=== PATIENT | female | born 1955 | race American Indian/Alaskan Native ===

== ENCOUNTER 2017-09-16 14:30 | Inpatient (IN) | payer SELFPAY ==
--- NOTE | 2017-09-16 14:47 | Emergency Department Report ---
HPI - General Time Seen by Provider: 09/16/17 14:34 - HPI HPI: 62-year-old female presents to the emergency department via EMS from home as a code stroke. Patient's granddaughters are here and state that the last time she was at her normal baseline mental status was sometime yesterday. This morning she was able to get out one or 2 word sentences and worsened from there. She has a past medical history of some type of adrenal gland removal. The family is unaware of any history of diabetes but the patient was found to have a critical high blood sugar and apparently told EMS that she used to have diabetes but took herself off the medications. The patient herself is currently a poor story and as she is altered. ED Past Medical Hx - Medications Home Medications: Home Medications Medication Instructions Recorded Confirmed Last Taken Type No Known Home Medications [No 09/16/17 09/16/17 Unknown History Reported Home Medications] ED Review of Systems ROS: Stated complaint: POSS STROKE Other details as noted in HPI Comment: Unobtainable due to pts medical conditions Physical Exam - Physical Exam Physical Exam: GENERAL: Patient is well-appearing. HENT: Normocephalic. Atraumatic. Patient has moist mucous membranes. EYES: Extraocular motions are intact. Pupils equal reactive to light bilaterally. NECK: Supple. Trachea is midline. CHEST/LUNGS: Clear to auscultation. Mild tachypnea but no excessive muscle use. There is no respiratory distress noted. HEART/CARDIOVASCULAR: Regular. There is no tachycardia. There is no murmur. ABDOMEN: Abdomen is soft, nontender. Patient has normal bowel sounds. There is no abdominal distention. SKIN: Skin is warm and dry. NEURO: The patient is awake and cooperative but confused. No obvious motor or sensory deficits. Patient has some dysarthria and mild aphasia. MUSCULOSKELETAL: There is no tenderness or deformity. There is no evidence of acute injury. ED Course - Reevaluation(s) Reevaluation #1: 09/16/17 15:06 NIH Stroke Scale/Score (NIHSS) RESULT SUMMARY: 2 points NIH Stroke Scale INPUTS: 1A: Level of consciousness > 0 = Alert; keenly responsive 1B: Ask month and age > 0 = Both questions right 1C: 'Blink eyes' & 'squeeze hands' > 0 = Performs both tasks 2: Horizontal extraocular movements > 0 = Normal 3: Visual smith > 0 = No visual loss 4: Facial palsy > 0 = Normal symmetry 5A: Left arm motor drift > 0 = No drift for 10 seconds 5B: Right arm motor drift > 0 = No drift for 10 seconds 6A: Left leg motor drift > 0 = No drift for 5 seconds 6B: Right leg motor drift > 0 = No drift for 5 seconds 7: Limb Ataxia > 0 = No ataxia 8: Sensation > 0 = Normal; no sensory loss 9: Language/aphasia > 1 = Mild-moderate aphasia: some obvious changes, without significant limitation 10: Dysarthria > 1 = Mild-moderate dysarthria: slurring but can be understood 11: Extinction/inattention > 0 = No abnormality - Consultations Consultation #1: 09/16/17 18:10 I spoke with the telemedicine neurologist, Dr Vallejo, regarding the patient's presentation with altered mental status and CT head evidence of recent left frontal ischemic infarct. She agrees that the patient does not appear to be a TPA candidate as the patient's last known well time was yesterday and the CT Zeferino shows evidence of the infarct. She also feels that there is not a necessity for CT angiography of the head and neck since the stroke has already presented and his advanced. ED Medical Decision Making - Lab Data Result diagrams: 09/16/17 14:44 09/16/17 17:14 - Radiology Data Radiology results: report reviewed EXAM: CT HEAD/BRAIN WO CON HISTORY: neuro deficits lt; 6hrs or sx present upon awakening altered mental status. TECHNIQUE: CT of the head was performed without intravenous contrast. PRIORS: None. FINDINGS: The ventricles are normal in shape and position. The ventricles are nondilated. There is an area of focal edema within the left lateral frontal lobe with loss of the corticomedullary differentiation. No intracranial hemorrhage, mass, mass effect, or midline shift. The basilar cisterns are patent. The paranasal sinuses are clear. The extracranial soft tissues demonstrate no abnormality. The calvarium is intact. The orbits are intact. The mastoid air cells are clear. IMPRESSION: Findings concerning for recent left frontal lobe ischemic infarct. - Medical Decision Making Patient presented as a code stroke with concern for altered mental status and some dysarthria and aphasia. The patient's granddaughters are here and state that the symptoms first started yesterday but worsened today and yesterday was last known well time. This takes the patient out of the TPA window. CT of the head without contrast was done stat that came back resulting as a recent left frontal ischemic infarct. The Accu-Chek done on EMS was correct and the patient does have severe hyperglycemia. Her blood sugar from the serum came back greater than 1000 with some venous acidosis and elevated anion gap showing concern for DKA. This also could be a source of the patient's symptoms. She was given IV fluid resuscitation and started on an insulin drip. The patient was also found to have a lactic acidosis, pseudohyponatremia. All the labs and imaging results were discussed with the patient and her family and they understand the plan regarding ICU admission for further evaluation and treatment. They understand and agreed to the plan. - Differential Diagnosis DKA, HHNK, TIA, CVA, Dysrythmia Critical Care Time: Yes Critical care time in (mins) excluding proc time.: 35 Critical care attestation.: If time is entered above; I have spent that time in minutes in the direct care of this critically ill patient, excluding procedure time.critical care time was spent on this patient and doing her initial evaluation, multiple re-evaluations , discussion with the radiologist and telemedicine neurologist and family, ordering interpretation of labs and imaging, ordering and administration of medications including insulin drip, and disposition planning. Critical Care Time: 35 minutes ED Disposition Clinical Impression: Hypertensive urgency, Lactic acidosis CVA (cerebral vascular accident) Qualifiers: CVA mechanism: unspecified Qualified Code(s): I63.9 - Cerebral infarction, unspecified DKA (diabetic ketoacidoses) Qualifiers: Diabetes mellitus type: other specified (including HUMBERTO) Diabetes mellitus complication detail: without coma Qualified Code(s): E13.10 - Other specified diabetes mellitus with ketoacidosis without coma Disposition: DC-09 OP ADMIT IP TO THIS HOSP Is pt being admited?: Yes Condition: Serious Time of Disposition: 18:16
--- NOTE | 2017-09-16 14:53 | Cat Scan Report ---
FINAL REPORT EXAM: CT HEAD/BRAIN WO CON HISTORY: neuro deficits < 6hrs or sx present upon awakening altered mental status. TECHNIQUE: CT of the head was performed without intravenous contrast. PRIORS: None. FINDINGS: The ventricles are normal in shape and position. The ventricles are nondilated. There is an area of focal edema within the left lateral frontal lobe with loss of the corticomedullary differentiation. No intracranial hemorrhage, mass, mass effect, or midline shift. The basilar cisterns are patent. The paranasal sinuses are clear. The extracranial soft tissues demonstrate no abnormality. The calvarium is intact. The orbits are intact. The mastoid air cells are clear. IMPRESSION: Findings concerning for recent left frontal lobe ischemic infarct. Findings were discussed with Dr. Jaskaran Smith at 11:45 a.m. [facility] [place] on 09/16/2017.
[2017-09-16 15:00] LABS: Basophils % (Auto) 0.6 % (0.0-1.8); Eosinophils % (Auto) 0.2 % (0.0-4.3); Lymphocytes % (Auto) 11.7 % (13.4-35.0); Mean Corpuscular HGB Conc 31 % (30-34); Mean Corpuscular Hemoglobin 27 pg (28-32); Mean Corpuscular Volume 86 fl (79-97); Monocytes # (Auto) 0.3 K/mm3 (0.0-0.8); Monocytes % (Auto) 3.4 % (0.0-7.3); Platelet Count 236 K/mm3 (140-440); Red Blood Count 5.46 M/mm3 (3.65-5.03); Red Cell Distribution Width 15.8 % (13.2-15.2)
[2017-09-16 15:01] LABS: Hematocrit 47.1 % (30.3-42.9); Hemoglobin 14.5 gm/dl (10.1-14.3)
[2017-09-16 15:08] LABS: INR 0.97 (0.87-1.13); Partial Thromboplastin Time 24.9 Sec. (24.2-36.6); Thrombin Time 18.4 Sec. (15.1-19.6)
[2017-09-16 15:15] LABS: BUN/Creatinine Ratio 19; Blood Urea Nitrogen 33 mg/dL (7-17); Calcium 9.2 mg/dL (8.4-10.2); Hemolysis Index 3
[2017-09-16 15:20] LABS: Alanine Aminotransferase 21 units/L (7-56); Albumin 4.4 g/dL (3.9-5)
[2017-09-16 15:22] LABS: Bilirubin,Direct < 0.2 mg/dL (0-0.2)
[2017-09-16] MEDS ORDERED: NACL 0.9% 1000 ML 1,000 ML IV ONE ×2 (15:37→16:22)
[2017-09-16] MEDS ORDERED: APRESOLINE IV ONE (15:38)
[2017-09-16] MEDS ORDERED: D50W (25GM) Syringe IV PRN ×2 (15:38→17:39)
[2017-09-16] MEDS ORDERED: HumuLIN R 100 UNITS in NACL 0.9% 99 ML IV SCH ×2 (16:00→18:00)
[2017-09-16 16:20] LABS: Calcium 9.1 mg/dL (8.4-10.2)
[2017-09-16] MEDS ORDERED: REGLAN IV PRN (17:39)
[2017-09-16] MEDS ORDERED: PERCOCET 5/325 PO PRN (17:39)
[2017-09-16] MEDS ORDERED: SODIUM CHLORIDE FLUSH SYRINGE 10 ML IV PRN ×2 (17:39→23:30)
[2017-09-16] MEDS ORDERED: ZOFRAN IV PRN ×2 (17:39→23:30)
[2017-09-16] MEDS ORDERED: MORPHINE IV PRN (17:39)
--- NOTE | 2017-09-16 17:39 | History and Physical Report ---
History of Present Illness Date of examination: 09/16/17 Date of admission: 09/16/17 Chief complaint: Cc Altered Sensorium since AM History of present illness: [place] 62 yo Black female with doubtful history of Diabetes not on any medicines comes in for altered sensorium.Patient was doing well till yesterday.Patient had a reaction to Crab 4 days ago which resolved spontaneously.Patient had Partial Nephrectomy and Adrenalectomy couple of years ago.Was told that she had Diabetes but there was no follow up and she is not on any meds.Patient is confused and Altered.No Seizures.No fever or chills.Code stroke was called.Patient moving all 4 extremities. Past History Past Medical History: diabetes Past Surgical History: Other (Partial Nephrectomy and Adrenalectomy) Social history: lives with family, full code Family history: hypertension Medications and Allergies Allergies Allergy/AdvReac Type Severity Reaction Status Date / Time No Known Allergies Allergy Unverified 09/16/17 14:32 Home Medications Medication Instructions Recorded Confirmed Last Taken Type No Known Home Medications [No 09/16/17 09/16/17 Unknown History Reported Home Medications] Active Meds: Active Medications Dextrose (D50w (25gm) Syringe) 0 ml IV PRN PRN PRN Reason: Hypoglycemia Insulin Human Regular 100 (units/ Sodium Chloride) 100 mls @ 6 mls/hr IV TITR ALEXANDER; Protocol Last Admin: 09/16/17 16:24 Dose: 8 units/hr, 8 mls/hr Review of Systems All systems: negative Constitutional: lethargy, no weight loss, no weight gain, no fever, no chills, no sweats, no night sweats, no anorexia, no fatigue, no weakness, no malaise Ears, nose, mouth and throat: no mouth pain, no dysphagia, no hoarseness, no sore throat, no swelling in mouth, no swelling in throat Breasts: deferred Cardiovascular: no chest pain, no orthopnea, no palpitations, no rapid/ irregular heart beat, no edema, no syncope, no lightheadedness, no shortness of breath, no dyspnea on exertion, no paroxysmal nocturnal dyspnea Respiratory: no cough, no cough with sputum, no excessive sputum, no hemoptysis , no shortness of breath, no dyspnea on exertion, no congestion, no wheezing Gastrointestinal: no nausea, no vomiting, no diarrhea, no constipation, no change in bowel habits, no hematemesis, no coffee ground emesis Genitourinary Female: dysuria, urinary frequency, urgency Menstruation: ammenorrhea Rectal: no pain Musculoskeletal: no neck stiffness, no neck pain, no shooting arm pain, no arm numbness/tingling, no low back pain, no shooting leg pain, no leg numbness/ tingling, no redness of joints Integumentary: no rash, no pruritis, no redness, no sores, no wounds, no jaundice, no boils, no blisters Neurological: no head injury, no transient paralysis, no paralysis, no weakness , no parathesias, no numbness, no tingling, no seizures, no syncope, no tremors , no ataxia, no lack of coordination Psychiatric: no insomnia, no hypersomnia Endocrine: polyphagia, excessive thirst, polydipsia, polyuria, nocturia Hematologic/Lymphatic: no easy bruising, no easy bleeding Allergic/Immunologic: no urticaria, no allergic rhinitis, no wheezing Exam - Physical Exam Narrative exam: Lying in bed uncomfortably - Constitutional Vitals: Temp Pulse Resp BP Pulse Ox 97.3 F L 86 24 171/86 98 09/16/17 16:20 09/16/17 16:20 09/16/17 16:20 09/16/17 16:20 09/16/17 16:20 General appearance: Present: mild distress, well-nourished - EENT Eyes: Present: PERRL ENT: hearing intact, clear oral mucosa - Neck Neck: Present: supple, normal ROM - Respiratory Respiratory effort: normal Respiratory: bilateral: CTA - Cardiovascular Heart rate: 78 Rhythm: regular Heart Sounds: Present: S1 & S2. Absent: rub, click - Extremities Extremities: no ischemia, pulses intact, pulses symmetrical, No edema Peripheral Pulses: within normal limits - Abdominal General gastrointestinal: Present: soft, non-tender, non-distended, normal bowel sounds Female genitourinary: Present: normal - Rectal Rectal Exam: deferred - Integumentary Integumentary: Present: clear, warm, dry - Musculoskeletal Musculoskeletal: gait normal, strength equal bilaterally - Psychiatric Psychiatric: appropriate mood/affect, intact judgment & insight - Neurologic Neurologic: CNII-XII intact, moves all extremities - Allied Health Allied health notes reviewed: nursing, case management Results - Labs CBC & Chem 7: 09/16/17 14:44 09/16/17 17:14 Labs: Laboratory Last Values WBC 8.7 K/mm3 (4.5-11.0) 09/16/17 14:44 RBC 5.46 M/mm3 (3.65-5.03) H 09/16/17 14:44 Hgb 14.5 gm/dl (10.1-14.3) H 09/16/17 14:44 Hct 47.1 % (30.3-42.9) H 09/16/17 14:44 MCV 86 fl (79-97) 09/16/17 14:44 MCH 27 pg (28-32) L 09/16/17 14:44 MCHC 31 % (30-34) 09/16/17 14:44 RDW 15.8 % (13.2-15.2) H 09/16/17 14:44 Plt Count 236 K/mm3 (140-440) 09/16/17 14:44 Lymph % (Auto) 11.7 % (13.4-35.0) L 09/16/17 14:44 [place] % (Auto) 3.4 % (0.0-7.3) 09/16/17 14:44 Eos % (Auto) 0.2 % (0.0-4.3) 09/16/17 14:44 Baso % (Auto) 0.6 % (0.0-1.8) 09/16/17 14:44 Lymph # 1.0 K/mm3 (1.2-5.4) L 09/16/17 14:44 [place] # 0.3 K/mm3 (0.0-0.8) 09/16/17 14:44 Eos # 0.0 K/mm3 (0.0-0.4) 09/16/17 14:44 Baso # 0.0 K/mm3 (0.0-0.1) 09/16/17 14:44 Seg Neutrophils % 84.1 % (40.0-70.0) H 09/16/17 14:44 Seg Neutrophils # 7.3 K/mm3 (1.8-7.7) 09/16/17 14:44 PT 13.4 Sec. (12.2-14.9) 09/16/17 14:44 INR 0.97 (0.87-1.13) 09/16/17 14:44 APTT 24.9 Sec. (24.2-36.6) 09/16/17 14:44 Thrombin Time 18.4 Sec. (15.1-19.6) 09/16/17 14:44 VBG pH 7.308 (7.320-7.420) L 09/16/17 14:44 Sodium 120 mmol/L (137-145) L 09/16/17 15:46 Potassium 5.5 mmol/L (3.6-5.0) H 09/16/17 15:46 Chloride 82.4 mmol/L (98-107) L 09/16/17 15:46 Carbon Dioxide 19 mmol/L (22-30) L 09/16/17 15:46 Anion Gap 24 mmol/L 09/16/17 15:46 BUN 33 mg/dL (7-17) H 09/16/17 15:46 Creatinine 1.6 mg/dL (0.7-1.2) H 09/16/17 15:46 Estimated GFR 39 ml/min 09/16/17 15:46 BUN/Creatinine Ratio 21 % 09/16/17 15:46 Glucose 1097 mg/dL (65-100) H* 09/16/17 15:46 POC Glucose > 500 (70-105) H 09/16/17 17:32 Lactic Acid 2.10 mmol/L (0.7-2.0) H* 09/16/17 16:16 Calcium 9.1 mg/dL (8.4-10.2) 09/16/17 15:46 Phosphorus 4.10 mg/dL (2.5-4.5) 09/16/17 15:46 Magnesium 2.20 mg/dL (1.7-2.3) 09/16/17 15:46 Total Bilirubin 0.40 mg/dL (0.1-1.2) 09/16/17 14:44 Direct Bilirubin < 0.2 mg/dL (0-0.2) 09/16/17 14:44 Indirect Bilirubin 0.2 mg/dL 09/16/17 14:44 AST 20 units/L (5-40) 09/16/17 14:44 ALT 21 units/L (7-56) 09/16/17 14:44 Alkaline Phosphatase 139 units/L (35-129) H 09/16/17 14:44 Ammonia 25.0 umol/L (25-60) 09/16/17 14:44 Troponin T < 0.010 ng/mL (0.00-0.029) 09/16/17 14:44 Total Protein 7.6 g/dL (6.3-8.2) 09/16/17 14:44 Albumin 4.4 g/dL (3.9-5) 09/16/17 14:44 Albumin/Globulin Ratio 1.4 % 09/16/17 14:44 Short CBC 09/16/17 Range/Units 14:44 WBC 8.7 (4.5-11.0) K/mm3 Hgb 14.5 H (10.1-14.3) gm/dl Hct 47.1 H (30.3-42.9) % Plt Count 236 (140-440) K/mm3 BMP 09/16/17 09/16/17 09/16/17 14:44 15:46 17:14 Sodium 122 L 120 L 129 L D Potassium 5.2 H 5.5 H 4.7 Chloride 83.0 L 82.4 L 88.4 L Carbon Dioxide 22 19 L 21 L BUN 33 H 33 H 31 H Creatinine 1.7 H 1.6 H 1.6 H Glucose 1113 H* 1097 H* 722 H* Calcium 9.2 9.1 9.3 Cardiac Enzymes 09/16/17 Range/Units 14:44 Troponin T < 0.010 (0.00-0.029) ng/mL Liver Function 09/16/17 Range/Units 14:44 Total Bilirubin 0.40 (0.1-1.2) mg/dL Direct Bilirubin < 0.2 (0-0.2) mg/dL AST 20 (5-40) units/L ALT 21 (7-56) units/L Alkaline Phosphatase 139 H (35-129) units/L Albumin 4.4 (3.9-5) g/dL Urine 09/16/17 Range/Units Unknown Urine Color Straw (Yellow) Urine pH 6.0 (5.0-7.0) Ur Specific [place] 1.024 (1.003-1.030) Urine Protein <15 mg/dl (Negative) mg/dL Urine Glucose (UA) >=500 (Negative) mg/dL - Imaging and Cardiology EKG: report reviewed Imaging and Cardiology: Head CT IMPRESSION: Findings concerning for recent left frontal lobe ischemic infarct. Assessment and Plan Assessment and plan: Critical care statement: The high probability of a clinically significant, sudden or life threatening deterioration of the [Pulmonary, cadiac, renal] system(s) required my full and direct attention, intervention and personal management. The aggregate critical care time was [45] minutes. This time is in addition to time spent performing reported procedures but includes the following: [x] Data Review and interpretation [x] Patient assessment and monitoring of vital signs [x] Documentation [x] Medication orders and management Advance Directives: Yes (Full code) VTE prophylaxis?: Chemical Plan of care discussed with patient/family: Yes - Patient Problems (1) Hyperosmolar non-ketotic state in patient with type 2 diabetes mellitus Current Visit: Yes Status: Acute Plan to address problem: DKA protocol with Insulin drip and IV fluids and KCL as necessary ICU Admission Critical care consult Initiate Lantus 30 units SQ hs (2) CVA (cerebral vascular accident) Current Visit: Yes Status: Acute Qualifiers: CVA mechanism: unspecified Qualified Code(s): I63.9 - Cerebral infarction, unspecified Plan to address problem: Unlikely Will get MRI/MRA (3) GUSTAVO (acute kidney injury) Current Visit: Yes Status: Acute Plan to address problem: IV Fluids for now (4) Hyponatremia Current Visit: Yes Status: Acute Plan to address problem: Correction of BG should correct the sodium levels (5) Hyperkalemia Current Visit: Yes Status: Acute Plan to address problem: Also should correct because of cellular shifts with IV IV insulin (6) DVT prophylaxis Current Visit: Yes Status: Acute Plan to address problem: Lovenox SQ and GI prophylaxis with Famotidine
[2017-09-16 17:48] LABS: Calcium 9.3 mg/dL (8.4-10.2)
[2017-09-16] MEDS ORDERED: KCL 10MEQ/100ML 10 MEQ/100 ML BAG IV SCH ×2 (18:00)
[2017-09-16 18:16] LABS: Bilirubin,Urine NEG (Negative); Blood,Urine NEG (Negative); Color,Urine Straw (Yellow); Mucus,Urine FEW /HPF; Protein,Urine <15 mg/dL mg/dL (Negative); Urobilinogen,Urine < 2.0 mg/dL (<2.0)
[2017-09-16 19:34] LABS: Calcium 9.4 mg/dL (8.4-10.2)
[2017-09-16] MEDS: D5W/0.45% NACL/KCL 20 MEQ 20 MEQ/1,000 ML BAG IV SCH (20:40)
[2017-09-16] MEDS ORDERED: SODIUM CHLORIDE FLUSH SYRINGE 10 ML IV SCH (22:00)
[2017-09-16] MEDS ORDERED: LANTUS SUB-Q SCH ×2 (22:00)
[2017-09-16] MEDS ORDERED: TYLENOL PO PRN (23:30)
[2017-09-17] MEDS: D5W/0.45% NACL/KCL 20 MEQ 20 MEQ/1,000 ML BAG IV SCH (04:28)
[2017-09-17 07:46] LABS: BUN/Creatinine Ratio 16; Blood Urea Nitrogen 18 mg/dL (7-17); Calcium 8.8 mg/dL (8.4-10.2); Hemolysis Index 8
[2017-09-17] MEDS ORDERED: LOVENOX SUB-Q SCH (10:00)
[2017-09-17 10:12] LABS: BUN/Creatinine Ratio 15; Blood Urea Nitrogen 16 mg/dL (7-17); Calcium 8.7 mg/dL (8.4-10.2); Hemolysis Index 5
[2017-09-17] MEDS: SODIUM CHLORIDE FLUSH SYRINGE 10 ML IV SCH ×2 (10:46→23:14)
[2017-09-17] MEDS: LOVENOX SUB-Q SCH (11:33)
--- NOTE | 2017-09-17 11:38 | Progress Note ---
Assessment and Plan Assessment and plan: LASHAY 62 yo Black female with doubtful history of Diabetes not on any medicines comes in for altered sensorium.Patient was doing well till yesterday.Patient had a reaction to Crab 4 days ago which resolved spontaneously.Patient had Partial Nephrectomy and Adrenalectomy couple of years ago.Was told that she had Diabetes but there was no follow up and she is not on any meds.Patient is confused and Altered.No Seizures.No fever or chills.Code stroke was called.Patient moving all 4 extremities. Past History Past Medical History: diabetes IMPRESSION: Findings concerning for recent left frontal lobe ischemic infarct. Assessment and Plan Assessment and plan: Critical care statement: The high probability of a clinically significant, sudden or life threatening deterioration of the [Pulmonary, cadiac, renal] system(s) required my full and direct attention, intervention and personal management. The aggregate critical care time was [45] minutes. This time is in addition to time spent performing reported procedures but includes the following: [x] Data Review and interpretation [x] Patient assessment and monitoring of vital signs [x] Documentation [x] Medication orders and management Advance Directives: Yes (Full code) VTE prophylaxis?: Chemical Plan of care discussed with patient/family: Yes - Patient Problems (1) Hyperosmolar non-ketotic state in patient with type 2 diabetes mellitus Current Visit: Yes Status: Acute Plan to address problem: DKA protocol with Insulin drip and IV fluids and KCL as necessary ICU Admission Critical care consult Initiate Lantus 30 units SQ hs (2) CVA (cerebral vascular accident) Current Visit: Yes Status: Acute Qualifiers: CVA mechanism: unspecified Qualified Code(s): I63.9 - Cerebral infarction, unspecified Plan to address problem: Unlikely Will get MRI/MRA (3) GUSTAVO (acute kidney injury) Current Visit: Yes Status: Acute Plan to address problem: IV Fluids for now (4) Hyponatremia Current Visit: Yes Status: Acute Plan to address problem: Correction of BG should correct the sodium levels (5) Hyperkalemia Current Visit: Yes Status: Acute Plan to address problem: Also should correct because of cellular shifts with IV IV insulin (6) DVT prophylaxis Current Visit: Yes Status: Acute Plan to address problem: Lovenox SQ and GI prophylaxis with Famotidine Hospitalist Physical - Constitutional Vitals: Temp Pulse Resp BP Pulse Ox 98.3 F 69 21 128/67 93 08/07/18 08:00 09/17/17 08:00 09/17/17 08:00 09/17/17 08:00 09/17/17 10:32 General appearance: Present: mild distress, well-nourished Results - Labs CBC & Chem 7: 09/16/17 14:44 09/17/17 09:28 Labs: Laboratory Last Values WBC 8.7 K/mm3 (4.5-11.0) 09/16/17 14:44 RBC 5.46 M/mm3 (3.65-5.03) H 09/16/17 14:44 Hgb 14.5 gm/dl (10.1-14.3) H 09/16/17 14:44 Hct 47.1 % (30.3-42.9) H 09/16/17 14:44 MCV 86 fl (79-97) 09/16/17 14:44 MCH 27 pg (28-32) L 09/16/17 14:44 MCHC 31 % (30-34) 09/16/17 14:44 RDW 15.8 % (13.2-15.2) H 09/16/17 14:44 Plt Count 236 K/mm3 (140-440) 09/16/17 14:44 Lymph % (Auto) 11.7 % (13.4-35.0) L 09/16/17 14:44 [place] % (Auto) 3.4 % (0.0-7.3) 09/16/17 14:44 Eos % (Auto) 0.2 % (0.0-4.3) 09/16/17 14:44 Baso % (Auto) 0.6 % (0.0-1.8) 09/16/17 14:44 Lymph # 1.0 K/mm3 (1.2-5.4) L 09/16/17 14:44 [place] # 0.3 K/mm3 (0.0-0.8) 09/16/17 14:44 Eos # 0.0 K/mm3 (0.0-0.4) 09/16/17 14:44 Baso # 0.0 K/mm3 (0.0-0.1) 09/16/17 14:44 Seg Neutrophils % 84.1 % (40.0-70.0) H 09/16/17 14:44 Seg Neutrophils # 7.3 K/mm3 (1.8-7.7) 09/16/17 14:44 PT 13.4 Sec. (12.2-14.9) 09/16/17 14:44 INR 0.97 (0.87-1.13) 09/16/17 14:44 APTT 24.9 Sec. (24.2-36.6) 09/16/17 14:44 Thrombin Time 18.4 Sec. (15.1-19.6) 09/16/17 14:44 VBG pH 7.308 (7.320-7.420) L 09/16/17 14:44 Sodium 135 mmol/L (137-145) L 09/17/17 09:28 Potassium 4.1 mmol/L (3.6-5.0) 09/17/17 09:28 Chloride 103.4 mmol/L (98-107) 09/17/17 09:28 Carbon Dioxide 18 mmol/L (22-30) L 09/17/17 09:28 Anion Gap 18 mmol/L 09/17/17 09:28 BUN 16 mg/dL (7-17) 09/17/17 09:28 Creatinine 1.1 mg/dL (0.7-1.2) 09/17/17 09:28 Estimated GFR > 60 ml/min 09/17/17 09:28 BUN/Creatinine Ratio 15 % 09/17/17 09:28 Glucose 176 mg/dL (65-100) H 09/17/17 09:28 POC Glucose 126 (70-105) H 09/17/17 06:31 Hemoglobin A1c 12.7 % (4-6) H 09/16/17 17:48 Ketones Quantitative Negative (Negative) 09/16/17 19:10 Osmolality 318 Mosm/kg 09/16/17 17:48 Lactic Acid 4.90 mmol/L (0.7-2.0) H* 09/16/17 19:10 Calcium 8.7 mg/dL (8.4-10.2) 09/17/17 09:28 Phosphorus 4.00 mg/dL (2.5-4.5) 09/16/17 17:48 Magnesium 2.30 mg/dL (1.7-2.3) 09/16/17 17:48 Total Bilirubin 0.40 mg/dL (0.1-1.2) 09/16/17 14:44 Direct Bilirubin < 0.2 mg/dL (0-0.2) 09/16/17 14:44 Indirect Bilirubin 0.2 mg/dL 09/16/17 14:44 AST 20 units/L (5-40) 09/16/17 14:44 ALT 21 units/L (7-56) 09/16/17 14:44 Alkaline Phosphatase 139 units/L (35-129) H 09/16/17 14:44 Ammonia 25.0 umol/L (25-60) 09/16/17 14:44 Troponin T < 0.010 ng/mL (0.00-0.029) 09/16/17 14:44 Total Protein 7.6 g/dL (6.3-8.2) 09/16/17 14:44 Albumin 4.4 g/dL (3.9-5) 09/16/17 14:44 Albumin/Globulin Ratio 1.4 % 09/16/17 14:44 Urine Color Straw (Yellow) 09/16/17 Unknown Urine Turbidity Clear (Clear) 09/16/17 Unknown Urine pH 6.0 (5.0-7.0) 09/16/17 Unknown Ur Specific [place] 1.024 (1.003-1.030) 09/16/17 Unknown Urine Protein <15 mg/dl mg/dL (Negative) 09/16/17 Unknown Urine Glucose (UA) >=500 mg/dL (Negative) 09/16/17 Unknown Urine Ketones Neg mg/dL (Negative) 09/16/17 Unknown Urine Blood Neg (Negative) 09/16/17 Unknown Urine Nitrite Neg (Negative) 09/16/17 Unknown Urine Bilirubin Neg (Negative) 09/16/17 Unknown Urine Urobilinogen < 2.0 mg/dL (<2.0) 09/16/17 Unknown Ur Leukocyte Esterase Neg (Negative) 09/16/17 Unknown Urine WBC (Auto) 3.0 /HPF (0.0-6.0) 09/16/17 Unknown Urine RBC (Auto) 1.0 /HPF (0.0-6.0) 09/16/17 Unknown U Epithel Cells (Auto) 3.0 /HPF (0-13.0) 09/16/17 Unknown Urine Mucus Few /HPF 09/16/17 Unknown
--- NOTE | 2017-09-17 11:54 | Consultation ---
History of Present Illness Consult date: 09/17/17 Requesting physician: MARLY JOY Reason for consult: other (DKA) History of present illness: ASKED to see for ICU admission for DKA, Transitioned and off IV insulin before my evaluation please reconsult as needed Past History Past Medical History: diabetes Past Surgical History: Other (Partial Nephrectomy and Adrenalectomy) Social history: lives with family, full code Family history: hypertension Medications and Allergies Allergies Allergy/AdvReac Type Severity Reaction Status Date / Time No Known Allergies Allergy Unverified 09/16/17 14:32 Home Medications Medication Instructions Recorded Confirmed Last Taken Type Gabapentin [Neurontin] 100 mg PO Q8HR #90 capsule 09/18/17 Unknown Rx Insulin NPH/Regular [NovoLIN 70/30] 15 unit SQ BIDDIAB #1 vial 09/18/17 Unknown Rx Active Meds: Active Medications Acetaminophen (Tylenol) 650 mg PO Q4H PRN PRN Reason: Pain MILD(1-3)/Fever >100.5/HOLDER Dextrose (D50w (25gm) Syringe) 0 ml IV ONCE PRN PRN Reason: Hypoglycemia Enoxaparin Sodium (Lovenox) 40 mg SUB-Q QDAY@1000 ALEXANDER Last Admin: 09/17/17 11:33 Dose: 40 mg Insulin Human Regular 100 (units/ Sodium Chloride) 100 mls @ 6 mls/hr IV TITR ALEXANDER; Protocol Last Titration: 09/17/17 08:10 Dose: 2 units/hr, 2 mls/hr Potassium Chloride/Dextrose/Sod Cl (D5w/0.45% Nacl/Kcl 20 Meq) 20 meq in 1,000 mls @ 125 mls/hr IV DIRECT ALEXANDER Last Admin: 09/17/17 04:28 Dose: 125 mls/hr Insulin Glargine (Lantus) 30 units SUB-Q QHS ALEXANDER Last Admin: 09/16/17 23:52 Dose: Not Given Metoclopramide HCl (Reglan) 10 mg IV Q6H PRN PRN Reason: Nausea And Vomiting Morphine Sulfate (Morphine) 2 mg IV Q4H PRN PRN Reason: Pain, Moderate (4-6) Ondansetron HCl (Zofran) 4 mg IV Q8H PRN PRN Reason: Nausea And Vomiting Oxycodone/Acetaminophen (Percocet 5/325) 1 tab PO Q6H PRN PRN Reason: Pain, Moderate (4-6) Sodium Chloride (Sodium Chloride Flush Syringe 10 Ml) 10 ml IV BID ALEXANDER Last Admin: 09/17/17 10:46 Dose: 10 ml Sodium Chloride (Sodium Chloride Flush Syringe 10 Ml) 10 ml IV PRN PRN PRN Reason: LINE FLUSH Physical Examination Vital signs: Vital Signs BP 171/73 09/16/17 14:41 Results - Laboratory Findings CBC and BMP: 09/16/17 14:44 09/17/17 09:28 PT/INR, D-dimer PT 13.4 Sec. (12.2-14.9) 09/16/17 14:44 INR 0.97 (0.87-1.13) 09/16/17 14:44 Abnormal lab findings: Abnormal Labs 09/16/17 09/16/17 09/16/17 14:44 14:44 14:44 RBC 5.46 H Hgb 14.5 H Hct 47.1 H MCH 27 L RDW 15.8 H Lymph % (Auto) 11.7 L Lymph # 1.0 L Seg Neutrophils % 84.1 H VBG pH Sodium 122 L Potassium 5.2 H Chloride 83.0 L Carbon Dioxide BUN 33 H Creatinine 1.7 H Glucose 1113 H* POC Glucose Hemoglobin A1c Lactic Acid Alkaline Phosphatase 139 H 09/16/17 09/16/17 09/16/17 14:44 14:44 14:52 RBC Hgb Hct MCH RDW Lymph % (Auto) Lymph # Seg Neutrophils % VBG pH 7.308 L Sodium Potassium Chloride Carbon Dioxide BUN Creatinine Glucose POC Glucose > 500 H Hemoglobin A1c Lactic Acid 2.10 H* Alkaline Phosphatase 09/16/17 09/16/17 09/16/17 15:46 16:16 17:14 RBC Hgb Hct MCH RDW Lymph % (Auto) Lymph # Seg Neutrophils % VBG pH Sodium 120 L 129 L D Potassium 5.5 H Chloride 82.4 L 88.4 L Carbon Dioxide 19 L 21 L BUN 33 H 31 H Creatinine 1.6 H 1.6 H Glucose 1097 H* 722 H* POC Glucose Hemoglobin A1c Lactic Acid 2.10 H* Alkaline Phosphatase 09/16/17 09/16/17 09/16/17 17:14 17:32 17:48 RBC Hgb Hct MCH RDW Lymph % (Auto) Lymph # Seg Neutrophils % VBG pH Sodium Potassium Chloride Carbon Dioxide BUN Creatinine Glucose POC Glucose > 500 H Hemoglobin A1c 12.7 H Lactic Acid 4.30 H* Alkaline Phosphatase 09/16/17 09/16/17 09/16/17 18:56 19:10 19:10 RBC Hgb Hct MCH RDW Lymph % (Auto) Lymph # Seg Neutrophils % VBG pH Sodium 136 L D Potassium Chloride 97.9 L Carbon Dioxide 19 L BUN 27 H Creatinine 1.4 H Glucose 351 H POC Glucose 413 H Hemoglobin A1c Lactic Acid 4.90 H* Alkaline Phosphatase 09/16/17 09/16/17 09/16/17 19:35 20:25 21:19 RBC Hgb Hct MCH RDW Lymph % (Auto) Lymph # Seg Neutrophils % VBG pH Sodium Potassium Chloride Carbon Dioxide 21 L BUN 24 H Creatinine 1.4 H Glucose 202 H POC Glucose 331 H 198 H Hemoglobin A1c Lactic Acid Alkaline Phosphatase 09/16/17 09/16/17 09/17/17 21:29 23:28 00:34 RBC Hgb Hct MCH RDW Lymph % (Auto) Lymph # Seg Neutrophils % VBG pH Sodium Potassium Chloride Carbon Dioxide 20 L BUN 22 H Creatinine 1.3 H Glucose POC Glucose 203 H 112 H Hemoglobin A1c Lactic Acid Alkaline Phosphatase 09/17/17 09/17/17 09/17/17 02:00 02:05 02:09 RBC Hgb Hct MCH RDW Lymph % (Auto) Lymph # Seg Neutrophils % VBG pH Sodium 136 L Potassium Chloride Carbon Dioxide 20 L BUN 20 H Creatinine 1.3 H Glucose 176 H POC Glucose 153 H 175 H Hemoglobin A1c Lactic Acid Alkaline Phosphatase 09/17/17 09/17/17 09/17/17 02:40 03:13 04:08 RBC Hgb Hct MCH RDW Lymph % (Auto) Lymph # Seg Neutrophils % VBG pH Sodium Potassium Chloride Carbon Dioxide BUN Creatinine Glucose POC Glucose 175 H 165 H 151 H Hemoglobin A1c Lactic Acid Alkaline Phosphatase 09/17/17 09/17/17 09/17/17 05:29 06:31 07:06 RBC Hgb Hct MCH RDW Lymph % (Auto) Lymph # Seg Neutrophils % VBG pH Sodium Potassium Chloride Carbon Dioxide 19 L BUN 18 H Creatinine Glucose 146 H POC Glucose 110 H 126 H Hemoglobin A1c Lactic Acid Alkaline Phosphatase 09/17/17 09:28 RBC Hgb Hct MCH RDW Lymph % (Auto) Lymph # Seg Neutrophils % VBG pH Sodium 135 L Potassium Chloride Carbon Dioxide 18 L BUN Creatinine Glucose 176 H POC Glucose Hemoglobin A1c Lactic Acid Alkaline Phosphatase
[2017-09-17] MEDS: HumaLOG SUB-Q SCH ×3 (12:30→23:15)
[2017-09-17] MEDS ORDERED: LANTUS SUB-Q SCH (13:00)
[2017-09-17] MEDS: LANTUS SUB-Q SCH (14:34)
--- NOTE | 2017-09-17 17:51 | Magnetic Resonance Report ---
FINAL REPORT PROCEDURE: MR BRAIN WO CON TECHNIQUE: Magnetic resonance imaging of the brain was performed without contrast material. HISTORY: Stroke. COMPARISON: Prior CT scan of the brain 09/16/2017 FINDINGS: Focal area of encephalomalacia is seen in the lateral inferior aspect of the left frontal lobe. There is no abnormal restricted diffusion that would suggest an acute ischemic infarction. There is focal volume loss. There are linear bands of increased signal seen in cortex immediately inferior to the surface of the cortex. 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 No intracranial hemorrhage is visualized. There are patchy areas of increased T2 signal seen in the periventricular white matter and deep white matter consistent with gliosis likely on the basis of microvascular disease or white matter changes of aging. Small old lacunar infarct is seen in the periphery of the right cerebellar hemisphere posteriorly medially. There is mild gliosis also visualized in the christian. The ventricles are normal size and are midline. No abnormal extra-axial fluid collections or masses are seen. The corpus callosum, region of the pituitary fossa and foramen magnum show no abnormalities. Paranasal sinuses are clear. Mastoid air cells also are clear. 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 No acute ischemic abnormalities are identified. There is evidence of gliosis as well. No other abnormalities are seen
--- NOTE | 2017-09-17 17:55 | Magnetic Resonance Report ---
FINAL REPORT PROCEDURE: MR MRA/MRV HEAD WO CON TECHNIQUE: Axial 3-D [id number] MR angiography of the [place] of [place] and brain was performed. The source images were reconstructed in various views using maximum intensity projection. HISTORY: Stroke. COMPARISON: No prior studies are available for comparison. FINDINGS: Visualized portions of the internal carotid arteries are patent. The middle cerebral arteries, the right and left A1 segments are patent. There is a small right A1 segment, normal caliber left A1 segment. Both anterior cerebral arteries appear widely patent. Middle cerebral arteries also appear widely patent. Visualized vertebral arteries appear widely patent. The basilar artery is also widely patent. Both posterior cerebral arteries are widely patent. There is a patent right posterior communicating artery. No changes are seen that would suggest aneurysm or vascular malformation. IMPRESSION: Anterior and posterior circulation appear intact. No focal abnormalities are identified.
[2017-09-18] MEDS: LOVENOX SUB-Q SCH (11:18)
[2017-09-18] MEDS: LANTUS SUB-Q SCH (11:18)
[2017-09-18] MEDS: HumaLOG SUB-Q SCH ×4 (11:18→22:37)
[2017-09-18] MEDS: SODIUM CHLORIDE FLUSH SYRINGE 10 ML IV SCH ×2 (11:19→22:38)
--- NOTE | 2017-09-18 18:52 | Discharge Summary ---
Providers - Providers Date of Admission: 09/16/17 17:39 Attending physician: HOLLEY BUSBY MD 09/16/17 17:39 Consult to Dietitian/Nutrition [CONS] Routine Physician Instructions: diet education Reason For Exam: DKA Reason for Consult: Diet education 09/16/17 17:41 Consult to Case Management [CONS] Routine Services Needed at Discharge: Home Health Services Insurance Attorney Notified:: cm Consult to Physician [CONS] Routine Comment: Veronica @ [facility] notified @ 18:06- [facility] Consulting Provider: DELMIS RIBEIRO Physician Instructions: Reason For Exam: DKA 09/18/17 11:48 Physical Therapy Evaluation and Treat [CONS] Routine Comment: poss CVA Reason For Exam: difficulty in ambulation 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 Hospitalization Condition: Serious Disposition: DC-01 TO HOME OR SELFCARE Time spent for discharge: 33 minutes Core Measure Documentation - Palliative Care Palliative Care/ Comfort Measures: Not Applicable - Core Measures Any of the following diagnoses?: none Exam - Constitutional Vitals: Temp Pulse Resp BP Pulse Ox 97.9 F 79 20 145/75 96 09/18/17 17:53 09/18/17 17:53 09/18/17 17:53 09/18/17 17:53 09/18/17 17:53 General appearance: Present: no acute distress, well-nourished - EENT Eyes: Present: PERRL ENT: hearing intact, clear oral mucosa - Neck Neck: Present: supple, normal ROM - Respiratory Respiratory effort: normal Respiratory: bilateral: CTA - Cardiovascular Heart Sounds: Present: S1 & S2. Absent: rub, click - Extremities Extremities: pulses symmetrical, No edema Peripheral Pulses: within normal limits - Abdominal General gastrointestinal: Present: soft, non-tender, non-distended, normal bowel sounds Female genitourinary: Present: normal - Integumentary Integumentary: Present: clear, warm, dry - Musculoskeletal Musculoskeletal: gait normal, strength equal bilaterally - Psychiatric Psychiatric: appropriate mood/affect, intact judgment & insight - Neurologic Neurologic: CNII-XII intact, moves all extremities Plan Follow up with: PRIMARY CARE, [Primary Care Provider] - 3-5 Days Prescriptions: Gabapentin [Neurontin] 100 mg PO Q8HR #90 capsule Insulin NPH/Regular [NovoLIN 70/30] 15 unit SQ BIDDIAB #1 vial Other Discharge Orders: Glucometer supplies[Amb] Location: None Selected Glucometer (Amb) Location: None Selected
[2017-09-19] MEDS: HumaLOG SUB-Q SCH ×2 (08:43→12:48)
[2017-09-19] MEDS: LOVENOX SUB-Q SCH (10:18)
[2017-09-19] MEDS: LANTUS SUB-Q SCH (10:18)
[2017-09-19] MEDS: SODIUM CHLORIDE FLUSH SYRINGE 10 ML IV SCH (10:19)
[2017-09-19 13:08] VITALS: BP 146/70
--- NOTE | 2017-09-19 18:44 | Progress Note ---
Hospitalist Physical - Constitutional Vitals: Temp Pulse Resp BP Pulse Ox 98.4 F 80 16 146/70 96 09/19/17 11:46 09/19/17 11:46 09/19/17 11:46 09/19/17 11:46 09/19/17 11:46 General appearance: Present: no acute distress, well-nourished Results - Labs CBC & Chem 7: 09/16/17 14:44 09/17/17 09:28 Labs: Laboratory Last Values WBC 8.7 K/mm3 (4.5-11.0) 09/16/17 14:44 RBC 5.46 M/mm3 (3.65-5.03) H 09/16/17 14:44 Hgb 14.5 gm/dl (10.1-14.3) H 09/16/17 14:44 Hct 47.1 % (30.3-42.9) H 09/16/17 14:44 MCV 86 fl (79-97) 09/16/17 14:44 MCH 27 pg (28-32) L 09/16/17 14:44 MCHC 31 % (30-34) 09/16/17 14:44 RDW 15.8 % (13.2-15.2) H 09/16/17 14:44 Plt Count 236 K/mm3 (140-440) 09/16/17 14:44 Lymph % (Auto) 11.7 % (13.4-35.0) L 09/16/17 14:44 [place] % (Auto) 3.4 % (0.0-7.3) 09/16/17 14:44 Eos % (Auto) 0.2 % (0.0-4.3) 09/16/17 14:44 Baso % (Auto) 0.6 % (0.0-1.8) 09/16/17 14:44 Lymph # 1.0 K/mm3 (1.2-5.4) L 09/16/17 14:44 [place] # 0.3 K/mm3 (0.0-0.8) 09/16/17 14:44 Eos # 0.0 K/mm3 (0.0-0.4) 09/16/17 14:44 Baso # 0.0 K/mm3 (0.0-0.1) 09/16/17 14:44 Seg Neutrophils % 84.1 % (40.0-70.0) H 09/16/17 14:44 Seg Neutrophils # 7.3 K/mm3 (1.8-7.7) 09/16/17 14:44 PT 13.4 Sec. (12.2-14.9) 09/16/17 14:44 INR 0.97 (0.87-1.13) 09/16/17 14:44 APTT 24.9 Sec. (24.2-36.6) 09/16/17 14:44 Thrombin Time 18.4 Sec. (15.1-19.6) 09/16/17 14:44 VBG pH 7.308 (7.320-7.420) L 09/16/17 14:44 Sodium 135 mmol/L (137-145) L 09/17/17 09:28 Potassium 4.1 mmol/L (3.6-5.0) 09/17/17 09:28 Chloride 103.4 mmol/L (98-107) 09/17/17 09:28 Carbon Dioxide 18 mmol/L (22-30) L 09/17/17 09:28 Anion Gap 18 mmol/L 09/17/17 09:28 BUN 16 mg/dL (7-17) 09/17/17 09:28 Creatinine 1.1 mg/dL (0.7-1.2) 09/17/17 09:28 Estimated GFR > 60 ml/min 09/17/17 09:28 BUN/Creatinine Ratio 15 % 09/17/17 09:28 Glucose 176 mg/dL (65-100) H 09/17/17 09:28 POC Glucose 313 (70-105) H 09/19/17 11:00 Hemoglobin A1c 12.7 % (4-6) H 09/16/17 17:48 Ketones Quantitative Negative (Negative) 09/16/17 19:10 Osmolality 318 Mosm/kg 09/16/17 17:48 Lactic Acid 0.80 mmol/L (0.7-2.0) 09/17/17 12:40 Calcium 8.7 mg/dL (8.4-10.2) 09/17/17 09:28 Phosphorus 4.00 mg/dL (2.5-4.5) 09/16/17 17:48 Magnesium 2.30 mg/dL (1.7-2.3) 09/16/17 17:48 Total Bilirubin 0.40 mg/dL (0.1-1.2) 09/16/17 14:44 Direct Bilirubin < 0.2 mg/dL (0-0.2) 09/16/17 14:44 Indirect Bilirubin 0.2 mg/dL 09/16/17 14:44 AST 20 units/L (5-40) 09/16/17 14:44 ALT 21 units/L (7-56) 09/16/17 14:44 Alkaline Phosphatase 139 units/L (35-129) H 09/16/17 14:44 Ammonia 25.0 umol/L (25-60) 09/16/17 14:44 Troponin T < 0.010 ng/mL (0.00-0.029) 09/16/17 14:44 Total Protein 7.6 g/dL (6.3-8.2) 09/16/17 14:44 Albumin 4.4 g/dL (3.9-5) 09/16/17 14:44 Albumin/Globulin Ratio 1.4 % 09/16/17 14:44 Urine Color Straw (Yellow) 09/16/17 Unknown Urine Turbidity Clear (Clear) 09/16/17 Unknown Urine pH 6.0 (5.0-7.0) 09/16/17 Unknown Ur Specific [place] 1.024 (1.003-1.030) 09/16/17 Unknown Urine Protein <15 mg/dl mg/dL (Negative) 09/16/17 Unknown Urine Glucose (UA) >=500 mg/dL (Negative) 09/16/17 Unknown Urine Ketones Neg mg/dL (Negative) 09/16/17 Unknown Urine Blood Neg (Negative) 09/16/17 Unknown Urine Nitrite Neg (Negative) 09/16/17 Unknown Urine Bilirubin Neg (Negative) 09/16/17 Unknown Urine Urobilinogen < 2.0 mg/dL (<2.0) 09/16/17 Unknown Ur Leukocyte Esterase Neg (Negative) 09/16/17 Unknown Urine WBC (Auto) 3.0 /HPF (0.0-6.0) 09/16/17 Unknown Urine RBC (Auto) 1.0 /HPF (0.0-6.0) 09/16/17 Unknown U Epithel Cells (Auto) 3.0 /HPF (0-13.0) 09/16/17 Unknown Urine Mucus Few /HPF 09/16/17 Unknown
== END 2017-09-19 12:55 | disposition home or self-care (01) | DRG 682 ==
LOC: ED 14:30 → CC1 17:39 → 3A 09-18 00:57
PROVIDERS: ADMIT Internal Medicine; ATTEND Internal Medicine
DX: N17.9 Acute kidney failure, unspecified (principal); E11.00 Type 2 diabetes mellitus with hyperosmolarity without nonketotic hyperglycemic-hyperosmolar coma (NKHHC); E11.10 Type 2 diabetes mellitus with ketoacidosis without coma; E89.6 Postprocedural adrenocortical (-medullary) hypofunction; E87.1 Hypo-osmolality and hyponatremia; Y83.8 Other surgical procedures as the cause of abnormal reaction of the patient, or of later complication, without mention of misadventure at the time of the procedure; Y92.89 Other specified places as the place of occurrence of the external cause; Z90.5 Acquired absence of kidney; Z82.49 Family history of ischemic heart disease and other diseases of the circulatory system; E87.5 Hyperkalemia; Z79.4 Long term (current) use of insulin; I16.0 Hypertensive urgency
CPT/HCPCS: 36415; 70450; 70544; 70551; 80048; 80074; 81001; 82010; 82140; 82805; 82962; 83036; 83735; 83930; 84100; 84484; 85025; 85610; 85670; 85730; 93005; 93010; 93306; 93880; 99406; J0360; J1650; J1815; J7030

== ENCOUNTER 2018-07-30 12:05 | Inpatient (IN) | payer SELFPAY ==
--- NOTE | 2018-07-30 12:17 | Emergency Department Report ---
Blank Doc - Documentation Documentation: This is a 62-year-old female that presents with stroke like symptoms. Unable to speak and has headache. This initial assessment/diagnostic orders/clinical plan/treatment(s) is/are subject to change based on patient's health status, clinical progression and re- assessment by fellow clinical providers in the ED. Further treatment and workup at subsequent clinical providers discretion. Patient/guardians urged not to elope from the ED as their condition may be serious if not clinically assessed and managed. Initial orders include: 1- Patient sent to MAIN ED for further evaluation and treatment 2- Stroke protocol initiated
[2018-07-30 12:46] LABS: Basophils # (Auto) 0.1 K/mm3 (0.0-0.1); Eosinophils # (Auto) 0.1 K/mm3 (0.0-0.4); Eosinophils % (Auto) 0.7 % (0.0-4.3); Hematocrit 45.5 % (30.3-42.9); Hemoglobin 14.8 gm/dl (10.1-14.3); Lymphocytes # (Auto) 1.3 K/mm3 (1.2-5.4); Lymphocytes % (Auto) 13.7 % (13.4-35.0); Mean Corpuscular HGB Conc 33 % (30-34); Mean Corpuscular Volume 83 fl (79-97); Monocytes # (Auto) 0.4 K/mm3 (0.0-0.8); Monocytes % (Auto) 4.5 % (0.0-7.3); Platelet Count 237 K/mm3 (140-440); Red Blood Count 5.48 M/mm3 (3.65-5.03); Red Cell Distribution Width 15.1 % (13.2-15.2)
[2018-07-30 12:55] LABS: INR 1.02 (0.87-1.13)
[2018-07-30 12:56] LABS: Partial Thromboplastin Time 24.9 Sec. (24.2-36.6); Thrombin Time 17.4 Sec. (15.1-19.6)
--- NOTE | 2018-07-30 12:57 | Emergency Department Report ---
ED Neuro Deficit HPI - General Chief Complaint: Neuro Symptoms/Deficit Stated Complaint: SOB/LOSS OF SPEECH Time Seen by Provider: 07/30/18 12:15 Source: patient Mode of arrival: Ambulatory Limitations: Altered Mental Status, Physical Limitation - History of Present Illness Initial Comments: Patient is a 62-year-old female that presents emergency room with complaints of inability to talk. Patient states that her symptoms started 1 week ago and have worsened today. Patient denies chest pain. Patient denies shortness of breath. Patient states she also has global weakness. Patient states she's been out of her insulin and taking somebody else insulin. Patient states she has had mild dysuria doctor or buy diabetic medications. -: Sudden Location: speech, dysarthria Presenting Symptoms: Present: Unable to Speak Clearly, Altered Mental Status History of same: Yes Place: home Severity: severe Quality: weak, intermittant Improves With: none Worsens With: none On Anticoagulants: No Context: gradual onset Associated Symptoms: confusion, weakness. denies: chest pain, cough, diaphoresis, fever/chills, headaches, loss of appetite, malise, nausea/vomiting, vertigo, seizures, shortness of breath, syncope Treatments Prior to Arrival: none - Related Data Home Medications: Home Medications Medication Instructions Recorded Confirmed Last Taken Gabapentin [Neurontin] 300 mg PO Q8HR 07/30/18 07/30/18 Unknown Insulin NPH/Regular [NovoLIN 70/30] 16 unit SQ BIDDIAB 07/30/18 07/30/18 Unknown Allergies/Adverse Reactions: Allergies Allergy/AdvReac Type Severity Reaction Status Date / Time No Known Allergies Allergy Verified 07/30/18 12:09 ED Review of Systems ROS: Stated complaint: SOB/LOSS OF SPEECH Other details as noted in HPI Constitutional: weakness. denies: chills, fever Eyes: denies: eye pain, eye discharge, vision change ENT: denies: ear pain, throat pain Respiratory: denies: cough, shortness of breath, wheezing Cardiovascular: denies: chest pain, palpitations Endocrine: no symptoms reported Gastrointestinal: denies: abdominal pain, nausea, diarrhea Genitourinary: denies: urgency, dysuria, discharge Musculoskeletal: denies: back pain, joint swelling, arthralgia Skin: denies: rash, lesions Neurological: weakness. denies: headache, paresthesias Psychiatric: denies: anxiety, depression Hematological/Lymphatic: denies: easy bleeding, easy bruising ED Past Medical Hx - Past Medical History Previous Medical History?: Yes Hx Hypertension: Yes Hx CVA: Yes Hx Diabetes: Yes - Surgical History Past Surgical History?: Yes Additional Surgical History: Partial Nephrectomy, Adrenectomy. - Family History Family history: no significant - Social History Smoking Status: Former Smoker Substance Use Type: None - Medications Home Medications: Home Medications Medication Instructions Recorded Confirmed Last Taken Type Gabapentin [Neurontin] 300 mg PO Q8HR 07/30/18 07/30/18 Unknown History Insulin NPH/Regular [NovoLIN 70/30] 16 unit SQ BIDDIAB 07/30/18 07/30/18 Unknown History ED Neuro Physical Exam - General Limitations: Altered Mental Status General appearance: alert, in no apparent distress Suspected Stroke: Yes - Head Head exam: Present: atraumatic, normocephalic - Eye Eye exam: Present: normal appearance - ENT ENT exam: Present: mucous membranes moist - Neck Neck exam: Present: normal inspection - Respiratory Respiratory exam: Present: normal lung sounds bilaterally. Absent: respiratory distress - Cardiovascular Cardiovascular Exam: Present: regular rate, normal rhythm. Absent: systolic murmur, diastolic murmur, rubs, gallop - GI/Abdominal GI/Abdominal exam: Present: soft, normal bowel sounds - Rectal Rectal exam: Present: deferred - Extremities Exam Extremities exam: Present: normal inspection - Back Exam Back exam: Present: normal inspection - Neurological Exam Neurological exam: Present: alert, oriented X3 (patient is nonverbal but patient answers close ended questions) - NIHSS Assessment Interval: Baseline 1a. Level of Consciousness: alert/keenly responsive 1b. LOC Questions: answers both correctly 1c. LOC Commands: performs tasks correctly 2. Best Gaze: normal 3. Visual: complete hemianopia 4. Facial Palsy: normal symmetrical movement 5b. Motor Arm Right: no drift 5a. Motor Arm Left: no drift 6a. Motor Leg Left: no drift 6b. Motor Leg Right: no drift 7. Limb Ataxia: absent 8. Sensory: normal 9. Best Language: severe aphasia 10. Dysarthria: severe dysarthria 11. Extinction/Inattention: no abnormality Total Score: 6 Stroke Severity: Moderate Stroke - Psychiatric Psychiatric exam: Present: normal affect, normal mood - Skin Skin exam: Present: warm, dry, intact, normal color. Absent: rash ED Course Vital Signs 07/30/18 07/30/18 07/30/18 12:13 13:04 13:15 Temperature 98.4 F Pulse Rate 95 H 80 82 Respiratory 18 17 24 Rate Blood Pressure 155/100 185/98 190/97 O2 Sat by Pulse 96 100 96 Oximetry 07/30/18 07/30/18 07/30/18 13:30 13:45 14:00 Temperature Pulse Rate 82 78 79 Respiratory 12 18 16 Rate Blood Pressure 173/90 187/92 184/97 O2 Sat by Pulse 96 95 96 Oximetry 07/30/18 07/30/18 07/30/18 14:15 14:30 14:34 Temperature Pulse Rate 76 78 73 Respiratory 12 17 Rate Blood Pressure 199/103 199/103 179/89 O2 Sat by Pulse 98 98 Oximetry - Reevaluation(s) Reevaluation #1: Discussed all results with patient. Patient will be admitted to the hospitalist service. Patient agrees to plan of care. 07/30/18 13:31 - Consultations Consultation #1: Discussed case with neurologist. Neurologist wants patient to be admitted for possible toxic encephalopathy versus TIA versus old ischemic stroke. The patient is not a candidate for TPA 07/30/18 13:11 Consultation #2: Hospitalist consulted for admission. Hospitalist to admit patient. Hospitalist to assume care patient. 07/30/18 13:31 - Lab Data Result diagrams: 07/30/18 12:23 07/30/18 12:23 Lab Results 07/30/18 07/30/18 07/30/18 Range/Units 12:23 12:23 12:23 WBC 9.4 (4.5-11.0) K/mm3 RBC 5.48 H (3.65-5.03) M/mm3 Hgb 14.8 H (10.1-14.3) gm/dl Hct 45.5 H (30.3-42.9) % MCV 83 (79-97) fl MCH 27 L (28-32) pg MCHC 33 (30-34) % RDW 15.1 (13.2-15.2) % Plt Count 237 (140-440) K/mm3 Lymph % (Auto) 13.7 (13.4-35.0) % Smyth % (Auto) 4.5 (0.0-7.3) % Eos % (Auto) 0.7 (0.0-4.3) % Baso % (Auto) 1.0 (0.0-1.8) % Lymph # 1.3 (1.2-5.4) K/mm3 Smyth # 0.4 (0.0-0.8) K/mm3 Eos # 0.1 (0.0-0.4) K/mm3 Baso # 0.1 (0.0-0.1) K/mm3 Seg Neutrophils % 80.1 H (40.0-70.0) % Seg Neutrophils # 7.5 (1.8-7.7) K/mm3 PT 13.1 (12.2-14.9) Sec. INR 1.02 (0.87-1.13) APTT 24.9 (24.2-36.6) Sec. Thrombin Time 17.4 (15.1-19.6) Sec. VBG pH (7.320-7.420) Sodium 135 L (137-145) mmol/L Potassium 4.6 (3.6-5.0) mmol/L Chloride 95.0 L (98-107) mmol/L Carbon Dioxide 20 L (22-30) mmol/L Anion Gap 25 mmol/L BUN 25 H (7-17) mg/dL Creatinine 1.6 H (0.7-1.2) mg/dL Estimated GFR 39 ml/min BUN/Creatinine Ratio 16 % Glucose 633 H* (65-100) mg/dL POC Glucose (70-105) Calcium 10.0 (8.4-10.2) mg/dL Total Bilirubin 0.20 (0.1-1.2) mg/dL AST 17 (5-40) units/L ALT 21 (7-56) units/L Alkaline Phosphatase 113 (35-129) units/L Total Creatine Kinase 106 (30-135) units/L CK-MB (CK-2) 3.5 (0.0-4.0) ng/mL CK-MB (CK-2) Rel Index 3.3 (0-4) Troponin T < 0.010 (0.00-0.029) ng/mL Total Protein 7.8 (6.3-8.2) g/dL Albumin 4.0 (3.9-5) g/dL Albumin/Globulin Ratio 1.1 % Blood Type Antibody Screen 07/30/18 07/30/18 07/30/18 Range/Units 12:23 12:31 12:35 WBC (4.5-11.0) K/mm3 RBC (3.65-5.03) M/mm3 Hgb (10.1-14.3) gm/dl Hct (30.3-42.9) % MCV (79-97) fl MCH (28-32) pg MCHC (30-34) % RDW (13.2-15.2) % Plt Count (140-440) K/mm3 Lymph % (Auto) (13.4-35.0) % Smyth % (Auto) (0.0-7.3) % Eos % (Auto) (0.0-4.3) % Baso % (Auto) (0.0-1.8) % Lymph # (1.2-5.4) K/mm3 Smyth # (0.0-0.8) K/mm3 Eos # (0.0-0.4) K/mm3 Baso # (0.0-0.1) K/mm3 Seg Neutrophils % (40.0-70.0) % Seg Neutrophils # (1.8-7.7) K/mm3 PT (12.2-14.9) Sec. INR (0.87-1.13) APTT (24.2-36.6) Sec. Thrombin Time (15.1-19.6) Sec. VBG pH 7.336 (7.320-7.420) Sodium (137-145) mmol/L Potassium (3.6-5.0) mmol/L Chloride (98-107) mmol/L Carbon Dioxide (22-30) mmol/L Anion Gap mmol/L BUN (7-17) mg/dL Creatinine (0.7-1.2) mg/dL Estimated GFR ml/min BUN/Creatinine Ratio % Glucose (65-100) mg/dL POC Glucose > 500 H (70-105) Calcium (8.4-10.2) mg/dL Total Bilirubin (0.1-1.2) mg/dL AST (5-40) units/L ALT (7-56) units/L Alkaline Phosphatase (35-129) units/L Total Creatine Kinase (30-135) units/L CK-MB (CK-2) (0.0-4.0) ng/mL CK-MB (CK-2) Rel Index (0-4) Troponin T (0.00-0.029) ng/mL Total Protein (6.3-8.2) g/dL Albumin (3.9-5) g/dL Albumin/Globulin Ratio % Blood Type B POSITIVE Antibody Screen Negative - EKG Data -: EKG Interpreted by Ks EKG shows normal: sinus rhythm, axis, intervals, QRS complexes, ST-T waves Rate: normal Interpretation: LVH - Radiology Data Radiology results: report reviewed CT scan of head without contrast: Compared to 09/16/17. History: Stroke symptoms. Findings: Ventricles are normal in size and midline in location. Large focal area low attenuation in the left frontal lobe without significant interval change. 1 cm ill-defined focal area of low attenuation at the right cerebellum not seen on the previous study. No evidence of hemorrhage no extra-axial fluid collection. - Medical Decision Making Patient is a 62-year-old female appears emergency room with inability to talk. Patient also complained of weakness. Patient found to have DKA on labs. Patient's sugar elevated and patient is acidotic as well as open and 9. DT done and negative for bleeding. Neurology consultation due to neurologic symptoms and the neurologist believes this is a toxic/metabolic encephalopathy but TIA and CVA and other neurologic processes need to be ruled out with further neurologic workup and a neurology consult to include an MRI, MRA. Patient's started on DKA protocol to include insulin drip . His blood pressure elevating patient given 20 mg of hydralazine. - Differential Diagnosis DKA. Encephalopathy. Stroke. TIA. Dehydration - Core Measures AMI Core Measures Followed: Yes Critical Care Time: Yes Critical care attestation.: If time is entered above; I have spent that time in minutes in the direct care of this critically ill patient, excluding procedure time. Critical Care Time: 45 minutes ED Disposition Clinical Impression: Metabolic encephalopathy, Hypertensive urgency, Difficulty speaking, Weakness DKA (diabetic ketoacidoses) Qualifiers: Diabetes mellitus type: type 2 Diabetes mellitus complication detail: without coma Qualified Code(s): E11.10 - Type 2 diabetes mellitus with ketoacidosis without coma Renal failure Qualifiers: Renal failure chronicity: acute Acute renal failure type: unspecified Qualified Code(s): N17.9 - Acute kidney failure, unspecified Altered mental state Qualifiers: Altered mental status type: unspecified Qualified Code(s): R41.82 - Altered mental status, unspecified Disposition: DC-09 OP ADMIT IP TO THIS HOSP Is pt being admited?: Yes Does the pt Need Aspirin: No Condition: Critical Time of Disposition: 13:34
[2018-07-30 13:02] LABS: Creatine Kinase MB 3.5 ng/mL (0.0-4.0)
[2018-07-30 13:04] LABS: BUN/Creatinine Ratio 16; Blood Urea Nitrogen 25 mg/dL (7-17); Hemolysis Index 92
[2018-07-30] MEDS ORDERED: D50W (25GM) Syringe IV PRN ×2 (13:12→20:18)
[2018-07-30] MEDS ORDERED: NACL 0.9% 1000 ML 1,000 ML IV ONE (13:12)
--- NOTE | 2018-07-30 13:20 | Cat Scan Report ---
CT scan of head without contrast: Compared to 09/16/17. History: Stroke symptoms. Findings: Ventricles are normal in size and midline in location. Large focal area low attenuation in the left frontal lobe without significant interval change. 1 cm ill-defined focal area of low attenuation at the right cerebellum not seen on the previous study. No evidence of hemorrhage no extra-axial fluid collection. Impression: New Focal area of low attenuation at the right cerebellum adjacent to tentorium may be chronic or acute ischemia. Chronic ischemia in left frontal lobe without interval change. No hemorrhage
[2018-07-30 13:21] LABS: Alanine Aminotransferase 21 units/L (7-56)
--- NOTE | 2018-07-30 13:23 | Emergency Department Report ---
ED Neuro Deficit HPI - General Chief Complaint: Dyspnea/Respdistress Stated Complaint: SOB/LOSS OF SPEECH Time Seen by Provider: 07/30/18 12:15 Source: patient, family Mode of arrival: Ambulatory Limitations: No Limitations - History of Present Illness Initial Comments: [facility] Tele[facility]urology Consult [facility] DATE: July 30 2018 Impression: -Altered mental status slurred speech the patient's isn't speaking although it sounds like she does intermittently get out sentences. This fluctuating nature to her speech disturbance Not a tpa candidate is not typical of a vascular event although this cannot be 100% excluded. She was in the hospital for somewhat similar symptoms in September of last year also with marked hyperglycemia. not tpa candidate due to:fluctuating sx for one week atpyical presention no reliable LKN with that hx also BG over 500. can certainly address hyperglycemia and see if symptoms improve. Recommend inpatient neurology consultation, can consider f/U MRI brain, asa for now PT/OT/ST Symptoms (not) consistent with LVO therefore no role for ANGUS Differential Diagnosis: 1. Cardioembolic stroke 2. Small vessel disease/lacune 3. Thromboembolic, [id number] mechanism 4. Hypercoagulable state-related infarct 5. Transient ischemic attack 6. Thrombotic mechanism, large artery disease Comments: LKN one week ago Door tiem:12:05 [employer] contacted:12:49 [employer] at bedside:12:52 NIHSS assessment time:12:53 Recommendations: -start asa -lower bg tx dka Inpatient neurology consultation Inpatient stroke evaluation as per Neurology/ Internal Medicine Discussed with ED MD Please call with questions --------- CC speech disturbance hyperglycemia History of Present Illness Patient is a pleasant 62-year-old woman with a history of uncontrolled insulin- dependent diabetes. She apparently doesn't have health insurance and has been using another family members insulin. Her blood glucoses over 500 on arrival. For the past week she has had fluctuating speech issues that worsened and became more persistent over the past 24 hours. SHe has a hx of stroke it seems with MRI brain in september showing chronic left frontal encephalomalacea. She had presented at that tiem with severe inc BG she has a history of reported stroke slong with AMS and speech changes as well. Family says stroke was at that time although no new ishcmia on that scan. Interstingly they deny any prior clinical event prior to that which might be c/w prior cva. Takes no asa no reason why. no hx ICH no active bleeding. Diagnostic: CT w/o nothing acute chronci left frontal encephalomalacea Exam: 1a- LOC: Keenly responsive - =0 1b- LOC questions: Answers both questions correctly - 0 she can say these slowly 1c- LOC commands- Performs both tasks correctly- 0 2- Gaze: Normal; no gaze paresis or gaze deviation - 0 3- Visual Lindquist: =2 right 4- Facial movements: no facial palsy - 0 5- Upper limb motor - no drift -0 6- Lower limb motor - RLE =2 poor effort 7- Limb Coordination: absent ataxia - 0 8- Sensory : no sensory loss - 0 9- Language - pt can sometimes get corerct words out and other times wont speak keeps mouth shut =1 10- Speech -=1 11- Neglect / Extinction - none found -0 NIHSS score 6 Medical Decision Making: - Extensive number of diagnosis or management options are considered above. - Extensive amount of complex data reviewed. - High risk of complication and/or morbidity or mortality are associated with differential diagnostic considerations above. - There may be Uncertain outcome and increased probability of prolonged functional impairment or high probability of severe prolonged functional impairment associated with some of these differential diagnosis. Medical Data Reviewed: 1.Data reviewed include clinical labs, radiology, Medical Tests; 2.Tests results discussed w/performing or interpreting physician; 3.Obtaining/reviewing old medical records; 4.Obtaining case history from another source; 5.Independent review of image, tracing or specimen. Patient was informed the Neurology Consult would happen via telehealth (remote video) and consented to receiving care in this manner. - Related Data Home Medications: Previous Rx's Medication Instructions Recorded Last Taken Type Gabapentin [Neurontin] 100 mg PO Q8HR #90 capsule 09/18/17 Unknown Rx Insulin NPH/Regular [NovoLIN 70/30] 15 unit SQ BIDDIAB #1 vial 09/18/17 Unknown Rx Allergies/Adverse Reactions: Allergies Allergy/AdvReac Type Severity Reaction Status Date / Time No Known Allergies Allergy Verified 07/30/18 12:09 ED Review of Systems ROS: Stated complaint: SOB/LOSS OF SPEECH Other details as noted in HPI ED Past Medical Hx - Past Medical History Hx Hypertension: Yes Hx CVA: Yes Hx Diabetes: Yes - Surgical History Additional Surgical History: Partial Nephrectomy, Adrenectomy. - Social History Smoking Status: Unknown if ever smoked Substance Use Type: None - Medications Home Medications: Home Medications Medication Instructions Recorded Confirmed Last Taken Type Gabapentin [Neurontin] 100 mg PO Q8HR #90 capsule 09/18/17 Unknown Rx Insulin NPH/Regular [NovoLIN 70/30] 15 unit SQ BIDDIAB #1 vial 09/18/17 Unknown Rx ED Neuro Physical Exam - General Limitations: No Limitations Suspected Stroke: Yes - NIHSS Assessment Interval: Baseline 1a. Level of Consciousness: alert/keenly responsive 1b. LOC Questions: answers both correctly 1c. LOC Commands: performs tasks correctly 2. Best Gaze: normal 3. Visual: complete hemianopia 4. Facial Palsy: normal symmetrical movement 5b. Motor Arm Right: no drift 5a. Motor Arm Left: no drift 6a. Motor Leg Left: no drift 6b. Motor Leg Right: some gravity effort 7. Limb Ataxia: absent 8. Sensory: normal 9. Best Language: mild/moderate aphasia 10. Dysarthria: mild/moderate dysarthria 11. Extinction/Inattention: no abnormality Total Score: 6 Stroke Severity: Moderate Stroke ED Course Vital Signs 07/30/18 07/30/18 07/30/18 12:13 13:04 13:15 Temperature 98.4 F Pulse Rate 95 H 80 82 Respiratory 18 17 24 Rate Blood Pressure 155/100 185/98 190/97 O2 Sat by Pulse 96 100 96 Oximetry - Lab Data Result diagrams: 07/30/18 12:23 07/30/18 12:23 Lab Results 07/30/18 07/30/18 07/30/18 Range/Units 12:23 12:23 12:23 WBC 9.4 (4.5-11.0) K/mm3 RBC 5.48 H (3.65-5.03) M/mm3 Hgb 14.8 H (10.1-14.3) gm/dl Hct 45.5 H (30.3-42.9) % MCV 83 (79-97) fl MCH 27 L (28-32) pg MCHC 33 (30-34) % RDW 15.1 (13.2-15.2) % Plt Count 237 (140-440) K/mm3 Lymph % (Auto) 13.7 (13.4-35.0) % [place] % (Auto) 4.5 (0.0-7.3) % Eos % (Auto) 0.7 (0.0-4.3) % Baso % (Auto) 1.0 (0.0-1.8) % Lymph # 1.3 (1.2-5.4) K/mm3 [place]ford # 0.4 (0.0-0.8) K/mm3 Eos # 0.1 (0.0-0.4) K/mm3 Baso # 0.1 (0.0-0.1) K/mm3 Seg Neutrophils % 80.1 H (40.0-70.0) % Seg Neutrophils # 7.5 (1.8-7.7) K/mm3 PT 13.1 (12.2-14.9) Sec. INR 1.02 (0.87-1.13) APTT 24.9 (24.2-36.6) Sec. Thrombin Time 17.4 (15.1-19.6) Sec. VBG pH (7.320-7.420) Sodium 135 L (137-145) mmol/L Potassium 4.6 (3.6-5.0) mmol/L Chloride 95.0 L (98-107) mmol/L Carbon Dioxide 20 L (22-30) mmol/L Anion Gap 25 mmol/L BUN 25 H (7-17) mg/dL Creatinine 1.6 H (0.7-1.2) mg/dL Estimated GFR 39 ml/min BUN/Creatinine Ratio 16 % Glucose 633 H* (65-100) mg/dL POC Glucose (70-105) Calcium 10.0 (8.4-10.2) mg/dL Total Bilirubin 0.20 (0.1-1.2) mg/dL Alkaline Phosphatase 113 (35-129) units/L Total Creatine Kinase 106 (30-135) units/L CK-MB (CK-2) 3.5 (0.0-4.0) ng/mL CK-MB (CK-2) Rel Index 3.3 (0-4) Troponin T < 0.010 (0.00-0.029) ng/mL Total Protein 7.8 (6.3-8.2) g/dL Albumin 4.0 (3.9-5) g/dL Albumin/Globulin Ratio 1.1 % 07/30/18 07/30/18 Range/Units 12:31 12:35 WBC (4.5-11.0) K/mm3 RBC (3.65-5.03) M/mm3 Hgb (10.1-14.3) gm/dl Hct (30.3-42.9) % MCV (79-97) fl MCH (28-32) pg MCHC (30-34) % RDW (13.2-15.2) % Plt Count (140-440) K/mm3 Lymph % (Auto) (13.4-35.0) % [place] % (Auto) (0.0-7.3) % Eos % (Auto) (0.0-4.3) % Baso % (Auto) (0.0-1.8) % Lymph # (1.2-5.4) K/mm3 [place]ford # (0.0-0.8) K/mm3 Eos # (0.0-0.4) K/mm3 Baso # (0.0-0.1) K/mm3 Seg Neutrophils % (40.0-70.0) % Seg Neutrophils # (1.8-7.7) K/mm3 PT (12.2-14.9) Sec. INR (0.87-1.13) APTT (24.2-36.6) Sec. Thrombin Time (15.1-19.6) Sec. VBG pH 7.336 (7.320-7.420) Sodium (137-145) mmol/L Potassium (3.6-5.0) mmol/L Chloride (98-107) mmol/L Carbon Dioxide (22-30) mmol/L Anion Gap mmol/L BUN (7-17) mg/dL Creatinine (0.7-1.2) mg/dL Estimated GFR ml/min BUN/Creatinine Ratio % Glucose (65-100) mg/dL POC Glucose > 500 H (70-105) Calcium (8.4-10.2) mg/dL Total Bilirubin (0.1-1.2) mg/dL Alkaline Phosphatase (35-129) units/L Total Creatine Kinase (30-135) units/L CK-MB (CK-2) (0.0-4.0) ng/mL CK-MB (CK-2) Rel Index (0-4) Troponin T (0.00-0.029) ng/mL Total Protein (6.3-8.2) g/dL Albumin (3.9-5) g/dL Albumin/Globulin Ratio % Critical care attestation.: If time is entered above; I have spent that time in minutes in the direct care of this critically ill patient, excluding procedure time. ED Disposition Clinical Impression: DKA (diabetic ketoacidoses) Qualifiers: Diabetes mellitus type: other specified (including HUMBERTO) Diabetes mellitus complication detail: without coma Qualified Code(s): E13.10 - Other specified diabetes mellitus with ketoacidosis without coma CVA (cerebral vascular accident) Qualifiers: CVA mechanism: occlusion Precerebral and cerebral artery: middle cerebral artery Laterality of affected vessel: unspecified Qualified Code(s): I63.519 - Cerebral infarction due to unspecified occlusion or stenosis of unspecified middle cerebral artery Disposition: DC-09 OP ADMIT IP TO THIS HOSP Is pt being admited?: Yes Condition: Stable Instructions: Diabetic Ketoacidosis (ED) Referrals: DARRICK OROZCO MD [Primary Care Provider] - 3-5 Days
[2018-07-30] MEDS ORDERED: APRESOLINE IV ONE (13:33)
[2018-07-30] MEDS ORDERED: HumuLIN R 100 UNITS in NACL 0.9% 99 ML IV SCH ×2 (14:00→21:00)
[2018-07-30] MEDS ORDERED: APRESOLINE ONE (14:34)
[2018-07-30 15:48] LABS: Calcium 9.9 mg/dL (8.4-10.2)
[2018-07-30] MEDS ORDERED: D5W/0.45% NACL/KCL 20 MEQ 20 MEQ/1,000 ML BAG IV SCH (16:00)
[2018-07-30] MEDS ORDERED: CALCIUM CHLORIDE IV ONE (16:16)
[2018-07-30] MEDS ORDERED: KIONEX PO ONE (16:23)
[2018-07-30 16:46] LABS: BUN/Creatinine Ratio 16; Blood Urea Nitrogen 23 mg/dL (7-17); Hemolysis Index 415
[2018-07-30] MEDS ORDERED: D5/0.45NS 1,000 ML IV SCH (17:00)
[2018-07-30 17:31] LABS: Calcium 9.6 mg/dL (8.4-10.2)
[2018-07-30] MEDS: CALCIUM CHLORIDE 1,000 MG in NACL 0.9% 100 ML IV ONE ×2 (17:49→18:16)
[2018-07-30] MEDS ORDERED: TYLENOL PO PRN (20:15)
[2018-07-30] MEDS ORDERED: ZOFRAN IV PRN (20:15)
[2018-07-30] MEDS ORDERED: SODIUM CHLORIDE FLUSH SYRINGE 10 ML IV PRN (20:15)
[2018-07-30] MEDS ORDERED: KCL 10MEQ/100ML 10 MEQ/100 ML BAG IV SCH ×2 (21:00)
[2018-07-30 21:20] LABS: Amorphous Crystals,Urine Few; Bacteria,Urine 2+ /HPF (Negative); Bilirubin,Urine NEG (Negative); Blood,Urine SM (Negative); Color,Urine Yellow (Yellow); Mucus,Urine FEW /HPF
[2018-07-30 21:33] LABS: Calcium 9.6 mg/dL (8.4-10.2)
[2018-07-30] MEDS: LOVENOX SUB-Q SCH (22:18)
[2018-07-30] MEDS: SODIUM CHLORIDE FLUSH SYRINGE 10 ML IV SCH (22:19)
[2018-07-30] MEDS: PEPCID IV SCH (22:19)
[2018-07-30] MEDS: D5W/0.45% NACL/KCL 20 MEQ 20 MEQ/1,000 ML BAG IV SCH (23:59)
[2018-07-31] MEDS ORDERED: D50W (25GM) Syringe IV PRN (01:15)
[2018-07-31 05:38] LABS: BUN/Creatinine Ratio 15; Blood Urea Nitrogen 16 mg/dL (7-17); Calcium 8.9 mg/dL (8.4-10.2); Hemolysis Index 5
--- NOTE | 2018-07-31 06:03 | Event Note ---
Date: 07/30/18 See H/p in reports DKA Hyperkalemia Acute Encephalopathy No CVA
[2018-07-31] MEDS: HumaLOG SUB-Q SCH ×4 (06:14→23:25)
--- NOTE | 2018-07-31 06:18 | History and Physical Report ---
CHIEF COMPLAINT: 1. Difficulty talking. 2. High blood glucose levels. HISTORY OF PRESENT ILLNESS: A 62-year-old -[place] female brought into the Emergency Room because of difficulty in talking and altered sensorium. The patient states that her symptoms started 1 week ago and worsened today. No chest pain. Feels weak. Also, has severe polyuria and polydipsia. The patient has not been taking her insulin for the last 3-4 days. The patient started taking somebody else's insulin because of her insulin not being available. She is out of her insulin medication, able to move all 4 extremities. No fever or chills. No shortness of breath. PAST MEDICAL HISTORY: Significant for hypertension, diabetes and cerebrovascular accidents in the past. PAST SURGICAL HISTORY: Partial nephrectomy and adrenalectomy. FAMILY HISTORY: Hypertension. SOCIAL HISTORY: Former smoker. CURRENT MEDICATIONS: Gabapentin 300 three times a day and NovoLog 70/30, 60 units twice a day. REVIEW OF SYSTEMS: Significant for difficulty talking and altered sensorium. No focal deficits. Feels weak. Otherwise, review of systems negative. No fever or chills. PHYSICAL EXAMINATION: GENERAL: A young elderly female, looks older than her age. VITAL SIGNS: Temperature 98.1, pulse is 74, respirations are 22, sats are 94%, blood pressure 111/47. HEENT: Unremarkable. Pupils equal and reactive. NECK: Supple, no lymphadenopathy, no thyromegaly. LUNGS: Clear to auscultation and percussion. Good air entry. CARDIOVASCULAR: S1, S2 heard. No gallop, no murmur, no rub. Apical impulse in left fifth intercostal space and midclavicular line. ABDOMEN: Soft and benign. No hepatosplenomegaly. No guarding, no rigidity. Hernial orifices are normal. EXTREMITIES: Good pedal pulses. No pedal edema. CENTRAL NERVOUS SYSTEM: Lethargic and altered sensorium, but able to move all 4 extremities. Budget Consultant is normal. Power is 5/5 in both lower extremities. SKIN: Normal. LABORATORY DATA: Significant for white count of 9400, H and H is 14.8 and 45.5, platelet count is 237,000. Sodium was 139, bicarbonate was 20, BUN and creatinine was 22 and 1.4, glucose is 278. Hemoglobin A1c is 13.4, magnesium 2.7, CK-MB is normal. Urine, wbc more than 148. Initial potassium was 7.1, but on repeat it was 4.8. EKG shows normal sinus rhythm, normal intervals, normal QRS complexes, no acute ST-T wave changes. CT of the head, no acute infarct, 1-cm ill-defined focal area of low attenuation in the right cerebellum. There is no evidence of hemorrhage. ASSESSMENT AND PLAN: 1. Diabetic ketoacidosis, mild. The patient started on IV insulin. The patient has metabolic acidosis. DKA protocol to be followed. The patient to be discharged on insulin 70/30, 20 units twice a day and the patient to be compliant. 2. Acute encephalopathy, probably secondary to diabetic ketoacidosis. The patient is able to move all 4 extremities. Speech is improved while in the Emergency Room. Tele Neuro consult appreciated. We will get MRA, even though it is unlikely that she had a stroke. 3. Hypertension. Continue antihypertensives. 4. Hyperkalemia, spurious. Initially, it was 7.1, but immediate repeat was 4.8, hemolysis of the specimen. 5. Deep venous thrombosis prophylaxis, Lovenox 40 mg subcutaneous daily 6.SIRS Has UTI--On IV Rocephin 7.UTI--IV Rocephin pending urine/Blood cultures JOB# [id number] EDGAR/ELIZABETH LAO
[2018-07-31] MEDS: ROCEPHIN/NS 1 GM/50 ML 1 GM/50 ML BAG IV SCH (06:46)
[2018-07-31] MEDS: D5W/0.45% NACL/KCL 20 MEQ 20 MEQ/1,000 ML BAG IV SCH (06:54)
--- NOTE | 2018-07-31 09:13 | Progress Note ---
Assessment and Plan Assessment and plan: Diabetic Ketoacidosis Patient now off Insulin drip Start Novolin 70/30 bid Start Consistent carbohydrate diet [facility] and Acute metabolic encephalopathy Improving, now awake,alert Hypertension Monitor BP History of stroke Full code status History Interval history: Altered mental status improving Polyuria Polydipsia Hospitalist Physical - Physical exam Narrative exam: Gen: Not in acute distress, lying in bed, HEENT: Normocephalic, atraumatic Neck: supple, no JVD Heart: S1 and S2 reg, no murmurs, rubs or gallop Lungs: Clear, no crackles, no wheeze Abd: soft, non tender, non distended, normal BS Ext: No edema, no clubbing, no cyanosis, Neuro: Awake,alert, oriented x 3, moves all ext, non focal Psych:Normal mood - Constitutional Vitals: Temp Pulse Resp BP Pulse Ox 98.1 F 84 20 182/95 94 07/31/18 03:32 07/31/18 07:00 07/31/18 07:00 07/31/18 07:00 07/31/18 07:35 Results - Labs CBC & Chem 7: 07/30/18 12:23 07/31/18 04:06 Labs: Laboratory Last Values WBC 9.4 K/mm3 (4.5-11.0) 07/30/18 12:23 RBC 5.48 M/mm3 (3.65-5.03) H 07/30/18 12:23 Hgb 14.8 gm/dl (10.1-14.3) H 07/30/18 12:23 Hct 45.5 % (30.3-42.9) H 07/30/18 12:23 MCV 83 fl (79-97) 07/30/18 12:23 MCH 27 pg (28-32) L 07/30/18 12:23 MCHC 33 % (30-34) 07/30/18 12:23 RDW 15.1 % (13.2-15.2) 07/30/18 12:23 Plt Count 237 K/mm3 (140-440) 07/30/18 12:23 Lymph % (Auto) 13.7 % (13.4-35.0) 07/30/18 12:23 [place] % (Auto) 4.5 % (0.0-7.3) 07/30/18 12:23 Eos % (Auto) 0.7 % (0.0-4.3) 07/30/18 12:23 Baso % (Auto) 1.0 % (0.0-1.8) 07/30/18 12:23 Lymph # 1.3 K/mm3 (1.2-5.4) 07/30/18 12:23 [place] # 0.4 K/mm3 (0.0-0.8) 07/30/18 12:23 Eos # 0.1 K/mm3 (0.0-0.4) 07/30/18 12:23 Baso # 0.1 K/mm3 (0.0-0.1) 07/30/18 12:23 Seg Neutrophils % 80.1 % (40.0-70.0) H 07/30/18 12:23 Seg Neutrophils # 7.5 K/mm3 (1.8-7.7) 07/30/18 12:23 PT 13.1 Sec. (12.2-14.9) 07/30/18 12:23 INR 1.02 (0.87-1.13) 07/30/18 12:23 APTT 24.9 Sec. (24.2-36.6) 07/30/18 12:23 17.4 Sec. (15.1-19.6) 07/30/18 12:23 VBG pH 7.336 (7.320-7.420) 07/30/18 12:35 Sodium 141 mmol/L (137-145) 07/31/18 04:06 Potassium 4.0 mmol/L (3.6-5.0) 07/31/18 04:06 Chloride 105.1 mmol/L (98-107) 07/31/18 04:06 Carbon Dioxide 21 mmol/L (22-30) L 07/31/18 04:06 19 mmol/L 07/31/18 04:06 BUN 16 mg/dL (7-17) 07/31/18 04:06 1.1 mg/dL (0.7-1.2) 07/31/18 04:06 Estimated GFR > 60 ml/min 07/31/18 04:06 15 % 07/31/18 04:06 Glucose 240 mg/dL (65-100) H 07/31/18 04:06 POC Glucose 276 (70-105) H 07/31/18 05:35 13.4 % (4-6) H 07/30/18 16:45 Calcium 8.9 mg/dL (8.4-10.2) 07/31/18 04:06 Phosphorus 2.20 mg/dL (2.5-4.5) L D 07/30/18 20:57 Magnesium 2.30 mg/dL (1.7-2.3) 07/30/18 20:57 0.20 mg/dL (0.1-1.2) 07/30/18 12:23 AST 17 units/L (5-40) 07/30/18 12:23 ALT 21 units/L (7-56) 07/30/18 12:23 113 units/L (35-129) 07/30/18 12:23 106 units/L (30-135) 07/30/18 12:23 CK-MB (CK-2) 3.5 ng/mL (0.0-4.0) 07/30/18 12:23 CK-MB (CK-2) Rel Index 3.3 (0-4) 07/30/18 12:23 < 0.010 ng/mL (0.00-0.029) 07/30/18 12:23 7.8 g/dL (6.3-8.2) 07/30/18 12:23 4.0 g/dL (3.9-5) 07/30/18 12:23 1.1 % 07/30/18 12:23 Yellow (Yellow) 07/30/18 Unknown Turbid (Clear) 07/30/18 Unknown 7.0 (5.0-7.0) 07/30/18 Unknown Ur Specific [place] 1.016 (1.003-1.030) 07/30/18 Unknown 30 mg/dl mg/dL (Negative) 07/30/18 Unknown Neg mg/dL (Negative) 07/30/18 Unknown Neg mg/dL (Negative) 07/30/18 Unknown Sm (Negative) 07/30/18 Unknown Neg (Negative) 07/30/18 Unknown Neg (Negative) 07/30/18 Unknown 4.0 mg/dL (<2.0) 07/30/18 Unknown Ur Leukocyte Esterase Lg (Negative) 07/30/18 Unknown 148.0 /HPF (0.0-6.0) H 07/30/18 Unknown 48.0 /HPF (0.0-6.0) 07/30/18 Unknown U Epithel Cells (Auto) 10.0 /HPF (0-13.0) 07/30/18 Unknown 2+ /HPF (Negative) 07/30/18 Unknown Amorphous Crystals Few 07/30/18 Unknown Few /HPF 07/30/18 Unknown Blood Type B POSITIVE 07/30/18 12:23 Antibody Screen Negative 07/30/18 12:23 Active Medications - Current Medications Current Medications: Generic Name Dose Route Start Last Admin Trade Name Freq PRN Reason Stop Dose Admin Acetaminophen 650 mg 07/30/18 20:15 Tylenol PO Q4H PRN Pain MILD(1-3)/Fever >100.5/HOLDER Dextrose 50 ml 07/31/18 01:15 D50w (25gm) Syringe IV PRN PRN Hypoglycemia Enoxaparin Sodium 40 mg 07/30/18 22:00 07/30/18 22:18 Lovenox SUB-Q 40 mg QDAY@2200 ALEXANDER Administration Famotidine 20 mg 07/30/18 22:00 07/30/18 22:19 Pepcid IV 20 mg BID ALEXANDER Administration Hydromorphone HCl 0.5 mg 07/30/18 20:15 Dilaudid IV Q3H PRN Pain , Severe (7-10) Insulin Human Regular 100 100 mls @ 1 mls/hr 07/30/18 14:00 07/31/18 01:47 units/ Sodium Chloride IV 0 units/hr TITR ALEXANDER 0 mls/hr Titration Protocol 1 UNITS/HR Potassium Chloride/Dextrose/Sod Cl 20 meq in 1,000 mls @ 125 mls/hr 07/30/18 21:00 07/31/18 06:54 D5w/0.45% Nacl/Kcl 20 Meq IV 125 mls/hr DIRECT ALEXANDER Administration Ceftriaxone Sodium 1 gm in 50 mls @ 100 mls/hr 07/31/18 06:00 07/31/18 06:46 Rocephin/Ns 1 Gm/50 Ml IV 100 mls/hr Q24H ALEXANDER Administration Protocol Insulin Human Lispro 0 unit 07/31/18 06:00 07/31/18 06:14 Humalog SUB-Q 3 unit Q6HR ALEXANDER Administration Protocol Ondansetron HCl 4 mg 07/30/18 20:15 Zofran IV Q8H PRN Nausea And Vomiting Sodium Chloride 10 ml 07/30/18 22:00 07/30/18 22:19 Sodium Chloride Flush Syringe 10 Ml IV 10 ml BID ALEXANDER Administration Sodium Chloride 10 ml 07/30/18 20:15 Sodium Chloride Flush Syringe 10 Ml IV PRN PRN LINE FLUSH
[2018-07-31] MEDS ORDERED: ROCEPHIN/NS 1 GM/50 ML 1 GM/50 ML BAG IV SCH (10:00)
[2018-07-31] MEDS: ZESTRIL PO SCH (10:42)
[2018-07-31] MEDS: DILAUDID IV PRN (10:45)
[2018-07-31] MEDS: NEURONTIN PO SCH ×2 (10:45→22:54)
[2018-07-31] MEDS: SODIUM CHLORIDE FLUSH SYRINGE 10 ML IV SCH ×2 (10:51→22:57)
[2018-07-31] MEDS: PEPCID IV SCH ×2 (10:57→22:54)
[2018-07-31] MEDS ORDERED: NACL 0.9% 1000 ML 1,000 ML IV SCH ×2 (11:00→23:00)
--- NOTE | 2018-07-31 11:02 | Consultation ---
History of Present Illness - Reason for Consult Consult date: 07/31/18 DKA Requesting physician: MAXINE CACERES - History of Present Illness 62 y/o female admitted with DKA. Ran out of insulin so started taking mothers insulin but this was not enough. Past History Past Medical History: diabetes, other (Neuropathy) Medications and Allergies Allergies Allergy/AdvReac Type Severity Reaction Status Date / Time No Known Allergies Allergy Verified 07/30/18 12:09 Home Medications Medication Instructions Recorded Confirmed Last Taken Type Gabapentin [Neurontin] 300 mg PO Q8HR 07/30/18 07/30/18 Unknown History Insulin NPH/Regular [NovoLIN 70/30] 16 unit SQ BIDDIAB 07/30/18 07/30/18 Unknown History Active Meds: Active Medications Acetaminophen (Tylenol) 650 mg PO Q4H PRN PRN Reason: Pain MILD(1-3)/Fever >100.5/HOLDER Dextrose (D50w (25gm) Syringe) 50 ml IV PRN PRN PRN Reason: Hypoglycemia Enoxaparin Sodium (Lovenox) 40 mg SUB-Q QDAY@2200 [facility] Last Admin: 07/30/18 22:18 Dose: 40 mg Documented by: Famotidine (Pepcid) 20 mg IV BID [facility] Last Admin: 07/31/18 10:57 Dose: 20 mg Documented by: Gabapentin (Neurontin) 300 mg PO Q8HR [facility] Last Admin: 07/31/18 10:45 Dose: 300 mg Documented by: Hydromorphone HCl (Dilaudid) 0.5 mg IV Q3H PRN PRN Reason: Pain , Severe (7-10) Last Admin: 07/31/18 10:45 Dose: 0.5 mg Documented by: Ceftriaxone Sodium (Rocephin/Ns 1 Gm/50 Ml) 1 gm in 50 mls @ 100 mls/hr IV Q24H [facility]; Protocol Last Admin: 07/31/18 06:46 Dose: 100 mls/hr Documented by: Insulin Human Isoph/Insulin Regular (Humulin 70/30) 16 unit SUB-Q BIDDIAB [facility] Last Admin: 07/31/18 10:47 Dose: 16 unit Documented by: Insulin Human Lispro (Humalog) 0 unit SUB-Q Q6HR [facility]; Protocol Last Admin: 07/31/18 06:14 Dose: 3 unit Documented by: Lisinopril (Zestril) 10 mg PO QDAY [facility] Last Admin: 07/31/18 10:42 Dose: 10 mg Documented by: Ondansetron HCl (Zofran) 4 mg IV Q8H PRN PRN Reason: Nausea And Vomiting Sodium Chloride (Sodium Chloride Flush Syringe 10 Ml) 10 ml IV BID [facility] Last Admin: 07/31/18 10:51 Dose: 10 ml Documented by: Sodium Chloride (Sodium Chloride Flush Syringe 10 Ml) 10 ml IV PRN PRN PRN Reason: LINE FLUSH Review of Systems All systems: negative Exam - Constitutional Vitals: Temp Pulse Resp BP Pulse Ox 98.9 F 88 25 H 147/89 95 07/31/18 08:00 07/31/18 10:42 07/31/18 10:30 07/31/18 10:42 07/31/18 10:30 General appearance: Present: no acute distress - EENT Eyes: Present: PERRL ENT: hearing intact - Neck Neck: Present: supple - Respiratory Respiratory effort: normal Respiratory: bilateral: CTA - Cardiovascular Rhythm: regular Heart Sounds: Present: S1 & S2 Results - Labs CBC & Chem 7: 07/30/18 12:23 07/31/18 04:06 Labs: Abnormal lab results 07/30/18 07/30/18 07/30/18 Range/Units 12:23 12:23 12:31 RBC 5.48 H (3.65-5.03) M/mm3 Hgb 14.8 H (10.1-14.3) gm/dl Hct 45.5 H (30.3-42.9) % MCH 27 L (28-32) pg Seg Neutrophils % 80.1 H (40.0-70.0) % Sodium 135 L (137-145) mmol/L Potassium (3.6-5.0) mmol/L Chloride 95.0 L (98-107) mmol/L Carbon Dioxide 20 L (22-30) mmol/L BUN 25 H (7-17) mg/dL Creatinine 1.6 H (0.7-1.2) mg/dL Glucose 633 H* (65-100) mg/dL POC Glucose > 500 H (70-105) Hemoglobin A1c (4-6) % Phosphorus (2.5-4.5) mg/dL Magnesium (1.7-2.3) mg/dL Urine WBC (Auto) (0.0-6.0) /[facility] 07/30/18 07/30/18 07/30/18 Range/Units 15:15 15:18 15:27 RBC (3.65-5.03) M/mm3 Hgb (10.1-14.3) gm/dl Hct (30.3-42.9) % MCH (28-32) pg Seg Neutrophils % (40.0-70.0) % Sodium (137-145) mmol/L Potassium 7.1 H* D (3.6-5.0) mmol/L Chloride (98-107) mmol/L Carbon Dioxide 20 L 17 L (22-30) mmol/L BUN 22 H 23 H (7-17) mg/dL Creatinine 1.4 H 1.4 H (0.7-1.2) mg/dL Glucose 278 H 277 H (65-100) mg/dL POC Glucose 244 H (70-105) Hemoglobin A1c (4-6) % Phosphorus (2.5-4.5) mg/dL Magnesium 2.70 H (1.7-2.3) mg/dL Urine WBC (Auto) (0.0-6.0) /[facility] 07/30/18 07/30/18 07/30/18 Range/Units 16:45 16:45 16:50 RBC (3.65-5.03) M/mm3 Hgb (10.1-14.3) gm/dl Hct (30.3-42.9) % MCH (28-32) pg Seg Neutrophils % (40.0-70.0) % Sodium (137-145) mmol/L Potassium (3.6-5.0) mmol/L Chloride (98-107) mmol/L Carbon Dioxide (22-30) mmol/L BUN 22 H (7-17) mg/dL Creatinine 1.3 H (0.7-1.2) mg/dL Glucose 191 H (65-100) mg/dL POC Glucose 181 H (70-105) Hemoglobin A1c 13.4 H (4-6) % Phosphorus (2.5-4.5) mg/dL Magnesium (1.7-2.3) mg/dL Urine WBC (Auto) (0.0-6.0) /[facility] 07/30/18 07/30/18 07/30/18 Range/Units 18:02 19:24 20:10 RBC (3.65-5.03) M/mm3 Hgb (10.1-14.3) gm/dl Hct (30.3-42.9) % MCH (28-32) pg Seg Neutrophils % (40.0-70.0) % Sodium (137-145) mmol/L Potassium (3.6-5.0) mmol/L Chloride (98-107) mmol/L Carbon Dioxide (22-30) mmol/L BUN (7-17) mg/dL Creatinine (0.7-1.2) mg/dL Glucose (65-100) mg/dL POC Glucose 140 H 236 H 273 H (70-105) Hemoglobin A1c (4-6) % Phosphorus (2.5-4.5) mg/dL Magnesium (1.7-2.3) mg/dL Urine WBC (Auto) (0.0-6.0) /[facility] 07/30/18 07/30/18 07/30/18 Range/Units 20:57 20:57 21:06 RBC (3.65-5.03) M/mm3 Hgb (10.1-14.3) gm/dl Hct (30.3-42.9) % MCH (28-32) pg Seg Neutrophils % (40.0-70.0) % Sodium (137-145) mmol/L Potassium (3.6-5.0) mmol/L Chloride (98-107) mmol/L Carbon Dioxide (22-30) mmol/L BUN 20 H (7-17) mg/dL Creatinine 1.3 H (0.7-1.2) mg/dL Glucose 193 H (65-100) mg/dL POC Glucose 182 H (70-105) Hemoglobin A1c (4-6) % Phosphorus 2.20 L D (2.5-4.5) mg/dL Magnesium (1.7-2.3) mg/dL Urine WBC (Auto) (0.0-6.0) /[facility] 07/30/18 07/30/18 07/31/18 Range/Units 22:09 Unknown 01:10 RBC (3.65-5.03) M/mm3 Hgb (10.1-14.3) gm/dl Hct (30.3-42.9) % MCH (28-32) pg Seg Neutrophils % (40.0-70.0) % Sodium (137-145) mmol/L Potassium (3.6-5.0) mmol/L Chloride (98-107) mmol/L Carbon Dioxide (22-30) mmol/L BUN (7-17) mg/dL Creatinine (0.7-1.2) mg/dL Glucose (65-100) mg/dL POC Glucose 118 H 141 H (70-105) Hemoglobin A1c (4-6) % Phosphorus (2.5-4.5) mg/dL Magnesium (1.7-2.3) mg/dL Urine WBC (Auto) 148.0 H (0.0-6.0) /HPF 07/31/18 07/31/18 Range/Units 04:06 05:35 RBC (3.65-5.03) M/mm3 Hgb (10.1-14.3) gm/dl Hct (30.3-42.9) % MCH (28-32) pg Seg Neutrophils % (40.0-70.0) % Sodium (137-145) mmol/L Potassium (3.6-5.0) mmol/L Chloride (98-107) mmol/L Carbon Dioxide 21 L (22-30) mmol/L BUN (7-17) mg/dL Creatinine (0.7-1.2) mg/dL Glucose 240 H (65-100) mg/dL POC Glucose 276 H (70-105) Hemoglobin A1c (4-6) % Phosphorus (2.5-4.5) mg/dL Magnesium (1.7-2.3) mg/dL Urine WBC (Auto) (0.0-6.0) /HPF - Imaging and Cardiology CT Scan - head: report reviewed Assessment and Plan 62 y/o female with DKA and new lesion seen on CT of head. 1. Anion Gap is closed. Will start long acting insulin and feed patient (CC) diet. 2. Suggest neurology consult for review of CT and physical examination, may need MRI 3. Critical Care issues are stable, suggest transfer out of unit. 4. Will start EDMUND for HTN
[2018-07-31] MEDS ORDERED: SODIUM PHOSPHATE 30 MMOL in NACL 0.9% 500 ML 500 ML IV ONE (17:00)
[2018-07-31] MEDS ORDERED: HumaLOG SUB-Q SCH (17:13)
[2018-07-31] MEDS: ECOTRIN PO SCH (17:42)
--- NOTE | 2018-07-31 20:10 | Consultation ---
History of Present Illness Consult date: 07/31/18 Reason for consult: other History of present illness: 62year-old female admitted with DKA, now stable, complains vaginal/vulvar itching that started yesterday. She deneis vaginal discharge or bleeding. Past History Past Medical History: other (see Hospitalist history) Medications and Allergies Allergies Allergy/AdvReac Type Severity Reaction Status Date / Time No Known Allergies Allergy Verified 07/30/18 12:09 Home Medications Medication Instructions Recorded Confirmed Last Taken Type Gabapentin [Neurontin] 300 mg PO Q8HR 07/30/18 07/30/18 Unknown History Insulin NPH/Regular [NovoLIN 70/30] 16 unit SQ BIDDIAB 07/30/18 07/30/18 Unknown History Active Meds: Active Medications Acetaminophen (Tylenol) 650 mg PO Q4H PRN PRN Reason: Pain MILD(1-3)/Fever >100.5/HOLDER Aspirin (Ecotrin) 325 mg PO QDAY COUNTS INCLUDE 234 BEDS AT THE [facility] Last Admin: 07/31/18 17:42 Dose: 325 mg Documented by: Dextrose (D50w (25gm) Syringe) 50 ml IV PRN PRN PRN Reason: Hypoglycemia Enoxaparin Sodium (Lovenox) 40 mg SUB-Q QDAY@2200 [facility] Last Admin: 07/30/18 22:18 Dose: 40 mg Documented by: Famotidine (Pepcid) 20 mg IV BID COUNTS INCLUDE 234 BEDS AT THE [facility] Last Admin: 07/31/18 10:57 Dose: 20 mg Documented by: Gabapentin (Neurontin) 300 mg PO Q8HR COUNTS INCLUDE 234 BEDS AT THE [facility] Last Admin: 07/31/18 10:45 Dose: 300 mg Documented by: Hydromorphone HCl (Dilaudid) 0.5 mg IV Q3H PRN PRN Reason: Pain , Severe (7-10) Last Admin: 07/31/18 10:45 Dose: 0.5 mg Documented by: Ceftriaxone Sodium (Rocephin/Ns 1 Gm/50 Ml) 1 gm in 50 mls @ 100 mls/hr IV Q24H COUNTS INCLUDE 234 BEDS AT THE [facility]; Protocol Last Admin: 07/31/18 06:46 Dose: 100 mls/hr Documented by: Sodium Phosphate 30 mmol/ (Sodium Chloride) 510 mls @ 125 mls/hr IV ONCE ONE Stop: 07/31/18 21:04 Last Admin: 07/31/18 17:44 Dose: 125 mls/hr Documented by: Insulin Human Isoph/Insulin Regular (Humulin 70/30) 16 unit SUB-Q BIDDIAB COUNTS INCLUDE 234 BEDS AT THE [facility] Last Admin: 07/31/18 17:42 Dose: 16 unit Documented by: Insulin Human Lispro (Humalog) 0 unit SUB-Q ACHS COUNTS INCLUDE 234 BEDS AT THE [facility]; Protocol Last Admin: 07/31/18 17:43 Dose: 10 unit Documented by: Lisinopril (Zestril) 10 mg PO QDAY COUNTS INCLUDE 234 BEDS AT THE [facility] Last Admin: 07/31/18 10:42 Dose: 10 mg Documented by: Ondansetron HCl (Zofran) 4 mg IV Q8H PRN PRN Reason: Nausea And Vomiting Sodium Chloride (Sodium Chloride Flush Syringe 10 Ml) 10 ml IV BID COUNTS INCLUDE 234 BEDS AT THE [facility] Last Admin: 07/31/18 10:51 Dose: 10 ml Documented by: Sodium Chloride (Sodium Chloride Flush Syringe 10 Ml) 10 ml IV PRN PRN PRN Reason: LINE FLUSH - Vital Signs Vital signs: Vital Signs Temp Pulse Resp BP Pulse Ox 98.4 F 95 H 18 155/100 96 07/30/18 12:13 07/30/18 12:13 07/30/18 12:13 07/30/18 12:13 07/30/18 12:13 Temp Pulse Resp BP Pulse Ox 97.9 F 68 20 133/72 97 07/31/18 16:02 07/31/18 16:02 07/31/18 16:02 07/31/18 16:02 07/31/18 16:02 - Physical Exam Genitourinary (Female): Positive: other (vulvar erythema with slight induration, wet prep obtained and pending). Negative: perineal/vulvar lesions Results Result Diagrams: 07/30/18 12:23 07/31/18 04:06 Abnormal lab results 07/30/18 07/30/18 07/30/18 Range/Units 20:10 20:57 20:57 Carbon Dioxide (22-30) mmol/L BUN 20 H (7-17) mg/dL Creatinine 1.3 H (0.7-1.2) mg/dL Glucose 193 H (65-100) mg/dL POC Glucose 273 H (70-105) Phosphorus 2.20 L D (2.5-4.5) mg/dL Urine WBC (Auto) (0.0-6.0) /HPF 07/30/18 07/30/18 07/30/18 Range/Units 21:06 22:09 Unknown Carbon Dioxide (22-30) mmol/L BUN (7-17) mg/dL Creatinine (0.7-1.2) mg/dL Glucose (65-100) mg/dL POC Glucose 182 H 118 H (70-105) Phosphorus (2.5-4.5) mg/dL Urine WBC (Auto) 148.0 H (0.0-6.0) /HPF 07/31/18 07/31/18 07/31/18 Range/Units 01:10 04:06 05:35 Carbon Dioxide 21 L (22-30) mmol/L BUN (7-17) mg/dL Creatinine (0.7-1.2) mg/dL Glucose 240 H (65-100) mg/dL POC Glucose 141 H 276 H (70-105) Phosphorus (2.5-4.5) mg/dL Urine WBC (Auto) (0.0-6.0) /HPF 07/31/18 07/31/18 Range/Units 10:31 16:06 Carbon Dioxide (22-30) mmol/L BUN (7-17) mg/dL Creatinine (0.7-1.2) mg/dL Glucose (65-100) mg/dL POC Glucose 260 H 376 H (70-105) Phosphorus (2.5-4.5) mg/dL Urine WBC (Auto) (0.0-6.0) /HPF All other labs normal. Assessment and Plan - Patient Problems (1) Itching in the vaginal area Current Visit: Yes Status: Acute Plan to address problem: Probable mercy vaginitis Wet prep pending, will proceed with Monistat vaginal cream x7days (2) DKA (diabetic ketoacidoses) Current Visit: Yes Status: Acute Qualifiers: Diabetes mellitus type: type 2 Diabetes mellitus complication detail: without coma Qualified Code(s): E11.10 - Type 2 diabetes mellitus with ketoacidosis without coma
[2018-07-31] MEDS ORDERED: MONISTAT VG SCH (22:00)
[2018-07-31 22:08] LABS: Calcium 8.3 mg/dL (8.4-10.2)
[2018-07-31] MEDS: LOVENOX SUB-Q SCH (22:55)
--- NOTE | 2018-08-01 02:31 | Event Note ---
Date: 08/01/18 BV on wet prep, no evidence of mercy. Will d/c vaginal monistat and start Flagly. Will continue Monistat to vulva d/t erythema
[2018-08-01] MEDS: NEURONTIN PO SCH ×2 (06:15→13:14)
[2018-08-01] MEDS: ROCEPHIN/NS 1 GM/50 ML 1 GM/50 ML BAG IV SCH (06:15)
[2018-08-01] MEDS: HumaLOG SUB-Q SCH ×3 (07:30→16:30)
[2018-08-01] MEDS ORDERED: FLAGYL PO SCH (10:00)
[2018-08-01] MEDS: PEPCID IV SCH (10:35)
[2018-08-01] MEDS: ECOTRIN PO SCH (10:36)
[2018-08-01] MEDS: ZESTRIL PO SCH (10:36)
[2018-08-01] MEDS: SODIUM CHLORIDE FLUSH SYRINGE 10 ML IV SCH (10:37)
[2018-08-01] MEDS: MONISTAT-DERM TP SCH (10:45)
[2018-08-01] MEDS: DILAUDID IV PRN (10:46)
--- NOTE | 2018-08-01 12:02 | XRay Report ---
LEFT SHOULDER, 3 views History: Pain in left shoulder. Findings: Mild osteopenia. Minimal osteoarthritic changes are identified. No evidence for fracture, dislocation or ligamentous injury. The soft tissues are unremarkable. IMPRESSION: No acute process. Osteopenia. Minimal degenerative changes.
--- NOTE | 2018-08-01 15:33 | Discharge Summary ---
Providers - Providers Date of Admission: 07/30/18 14:01 Date of discharge: 08/01/18 Attending physician: MAXINE CACERES 07/30/18 20:18 Consult to Dietitian/Nutrition [CONS] Routine Physician Instructions: Reason For Exam: DKA Reason for Consult: Nutrition Recommendations Reason for Consult: Diet education 07/31/18 18:06 Consult to Physician [CONS] Routine Comment: Consulting Provider: DOLORES MONTANA Physician Instructions: Reason For Exam: vaginal itching [facility] Condition: [facility] Hospital course: Patient is 62 yo with diabetes, obesity presented with altered mental status, difficulty with speech for 1 week but worse on day of presentation. She also adm its to not taking Insulin in 3-4 days. She was evaluated in ED. Labs revealed glucose of 633, CO2 of 20, anion gap 25. She was diagnosed with diabetic ketoacidosis, started on Insulin drip , iv fluids and admitted to ICU. She was also diagnosed with acute metabolic encephalopathy. Diabetic Ketoacidosis Patient now off Insulin drip, on Novolin 70/30 bid Acute metabolic encephalopathy Resolved, now awake,alert Hypertension Monitor BP History of stroke bacterial vaginosis Evaluated by Gynecology Full code status Total time spent on discharge, 32 mins Disposition: -01 TO HOME OR SELFCARE - Discharge Diagnoses (1) GUSTAVO (acute kidney injury) Status: Acute (2) ATN (acute tubular necrosis) Status: Acute (3) Bacterial vaginosis Status: Acute (4) DKA (diabetic ketoacidoses) Status: Acute Qualifiers: Diabetes mellitus type: type 2 Diabetes mellitus complication detail: without coma Qualified Code(s): E11.10 - Type 2 diabetes mellitus with ketoacidosis without coma (5) Hyperkalemia Status: Acute (6) Hypertensive urgency Status: Acute (7) Itching in the vaginal area Status: Acute (8) Metabolic encephalopathy Status: Acute Core Measure Documentation - Palliative Care Palliative Care/ Comfort Measures: Not Applicable - Core Measures Any of the following diagnoses?: none Exam - Constitutional Vitals: Temp Pulse Resp BP Pulse Ox 98.2 F 82 18 153/80 94 08/01/18 11:03 08/01/18 11:03 08/01/18 11:03 08/01/18 11:03 08/01/18 11:20 Plan Activity: no restrictions Diet: low fat, low cholesterol, low salt, diabetic Additional Instructions: 1.Follow up with PCP in 1 week. 2.Follow up with Homer Buckley in 1 week [facility] [Primary Care Provider] - 3-5 Days Prescriptions: metroNIDAZOLE [Flagyl TAB] 500 mg PO BID 6 Days tablet Miconazole 2% [Monistat-Derm] 1 applic TP Q12HR #1 tube Insulin NPH/Regular [Novolin 70/30] 20 unit SQ BIDDIAB #1 vial
[2018-08-01 16:57] VITALS: BP 149/69
--- NOTE | 2018-08-01 20:37 | Vascular Lab Report ---
PROCEDURE: US LEFT UPPER EXTREMITY VENOUS DUPLEX DOPPLER TECHNIQUE: Duplex Doppler sonography of the LEFT subclavian, axillary, brachial, basilic, cephalic, and internal jugular veins was attempted. Fields scale imaging with and without compression, spectral w aveform analysis with and without augmentation, and color flow Doppler were employed. CPT 56279 HISTORY: Left upper extremity pain COMPARISONS: None . FINDINGS: Deep Venous Thrombus: None . Superficial Venous Thrombus: None . Soft tissue abnormality: None . IMPRESSION: No evidence of superficial or deep venous thrombosis . This document is electronically signed by Johnie Merchant MD., August 01 2018 08:34:55 PM ET
== END 2018-08-01 18:30 | disposition home or self-care (01) | DRG 637 ==
LOC: ED 12:05 → CC1 14:01 → 3A 07-31 14:08
PROVIDERS: ADMIT Internal Medicine; ATTEND Internal Medicine
DX: E11.10 Type 2 diabetes mellitus with ketoacidosis without coma (principal); G93.41 Metabolic encephalopathy; N17.9 Acute kidney failure, unspecified; N39.0 Urinary tract infection, site not specified; I10 Essential (primary) hypertension; I16.0 Hypertensive urgency; E87.5 Hyperkalemia; L29.9 Pruritus, unspecified; Z79.4 Long term (current) use of insulin; Z86.73 Personal history of transient ischemic attack (TIA), and cerebral infarction without residual deficits; Z90.5 Acquired absence of kidney; Z87.891 Personal history of nicotine dependence
CPT/HCPCS: 36415; 70450; 80048; 80053; 81001; 82550; 82553; 82805; 82962; 83036; 83735; 84100; 84484; 85025; 85610; 85670; 85730; 86850; 86900; 86901; 87086; 87210; 93005; 93010; 96374; 99291; G0378; J0360; J0696; J1170; J1650; J1815; J2405; J7030; J7040